=== PATIENT | female | born 1940 | race Caucasian/White ===

== ENCOUNTER 2016-07-10 10:22 | Inpatient (IN) | payer OTHER ==
[~2016-07-10] VITALS: Ht 167.6 cm; Wt 100.0 kg
[2016-07-10] MEDS ORDERED: TRAZ50TA18 PO (11:02)
[2016-07-10] MEDS ORDERED: IBUP400T22 PO (11:02)
[2016-07-10] MEDS ORDERED: AMLO-147 PO (11:02)
[2016-07-10] MEDS ORDERED: DULO60CA59 PO (11:03)
[2016-07-10] MEDS ORDERED: FURO20TA3 PO (11:03)
[2016-07-10] MEDS ORDERED: VALS160T20 PO (11:04)
[2016-07-10] MEDS ORDERED: FER325 PO (11:04)
[2016-07-10] MEDS ORDERED: OMEP20CA16 PO (11:05)
[2016-07-10] MEDS ORDERED: SODIUM CHLORIDE 0.9% 1L BAG IV* STA (11:13)
[2016-07-10] MEDS ORDERED: VANCOMYCIN 1 GM (PMX) 250 ML IVPB STA (11:13)
[2016-07-10] MEDS ORDERED: ACETAMINOPHEN 325 MG TAB PO STA (11:13)
[2016-07-10] MEDS ORDERED: LEVOFLOXACIN 500MG/D5W (PMX) 100 ML IVPB STA (11:17)
[2016-07-10] MEDS ORDERED: IPRATROPIUM (NEB) 0.5 MG/2.5 ML AMP INH STA (11:18)
[2016-07-10] MEDS ORDERED: ALBUTEROL 0.5% (NEB) 2.5 MG/0.5 ML AMP INH STA (11:18)
[2016-07-10] MEDS ORDERED: LABETALOL HCL 20MG INJ IV ONE (11:30)
[2016-07-10] MEDS ORDERED: IBUPROFEN 800 MG TAB PO ONE (11:30)
[2016-07-10 11:31] LABS: ADD SCAN DIFF NO
[2016-07-10 11:37] LABS: BASOPHILS % 0.1 % (0.0-2.0); HEMATOCRIT 31.6 % (37.0-47.0); HEMOGLOBIN 10.2 g/dl (12.0-16.0); LYMPHOCYTES # 1.1 10^3/ul (0.8-2.9); LYMPHOCYTES % 11.5 % (15.0-51.0); MEAN CORPUSCULAR HEMOGLOBIN 25.5 pg (29.0-33.0); MEAN CORPUSCULAR HGB CONC 32.3 g/dl (32.0-37.0); MEAN PLATELET VOLUME 10.5 fl (7.4-10.4); MONOCYTE # 0.5 10^3/ul (0.3-0.9); MONOCYTES % 5.8 % (0.0-11.0); NEUTROPHIL # 7.6 10^3/ul (1.6-7.5); NEUTROPHILS % 82.3 % (39.0-77.0); PLATELET COUNT 243 10^3/UL (140-415); RED CELL DISTRIBUTION WIDTH 14.4 % (11.5-14.5); WHITE BLOOD COUNT 9.2 10^3/ul (4.8-10.8)
[2016-07-10 11:42] LABS: ALBUMIN 3.9 g/dl (3.3-4.9); CHLORIDE 99 mmol/L (97-110); POTASSIUM 3.8 mmol/L (3.5-5.1); SODIUM 139 mmol/L (135-144)
[2016-07-10 11:44] LABS: AMYLASE 57 U/L (11-123); CREATININE 0.74 mg/dl (0.44-1.00)
[2016-07-10 11:45] LABS: ALANINE AMINOTRANSFERASE 30 IU/L (13-69); ALBUMIN/GLOBULIN RATIO 1.05; ALKALINE PHOSPHATASE 106 IU/L (42-121); ANION GAP 18 (8-16); ASPARTATE AMINO TRANSFERASE 24 IU/L (15-46); BILIRUBIN,INDIRECT 0.3 mg/dl (0-1.1); BILIRUBIN,TOTAL 0.3 mg/dl (0.2-1.3); BLOOD UREA NITROGEN 10 mg/dl (7-20); CALCIUM 8.8 mg/dl (8.4-10.2); CARBON DIOXIDE 26 mmol/L (21-31); GLUCOSE 193 mg/dl (70-220); TOTAL PROTEIN 7.6 g/dl (6.1-8.1)
[2016-07-10 11:47] LABS: INR 0.98
[2016-07-10 11:48] LABS: PARTIAL THROMBOPLASTIN TIME 28.1 Sec (25.0-35.0)
[2016-07-10 11:59] LABS: TROPONIN-I < 0.012 ng/ml (0.00-0.12)
--- NOTE | 2016-07-10 12:08 | RADRPT ---
PROCEDURE: XR Chest. CLINICAL INDICATION: Chest pain , sepsis TECHNIQUE: Single frontal view of the chest was obtained COMPARISON: None FINDINGS: The heart is enlarged. The thoracic aorta is calcified. There is a patchy right lower lobe infiltrate. There is no pleural effusion or pneumothorax. RPTAT: AA IMPRESSION: Patchy right lower lobe infiltrate. Mild cardiomegaly. Calcified aorta consistent with atherosclerotic disease. .Oscar López MD, MD Date Time Electronically viewed and signed by .Oscar López MD, on 07/10/2016 12:08 .S/
--- NOTE | 2016-07-10 12:18 | ERA ---
ER Documentation Chief Complaint Date/Time DATE: 07/10/16 TIME: 12:08 Chief Complaint feels sick,sob, flu like symptoms HPI This is a 75-year-old female that presents to the emergency complaining of difficulty breathing for the past 3 days. The patient has had a productive cough with whitish sputum. She had a tactile fever with shaking and chills that began roughly 12 hours prior to arrival. The patient had generalized myalgias. She denies any shortness of breath at rest or exertion contrary to the triage note. She denies a headache or changes in vision. 6 months prior to arrival in October the patient had an angiogram with clean coronaries and did not require cardiac stent. She did at that time had an episode of anemia and required 2 units of packed red blood cells. She has had no hemoptysis hematemesis or melanotic stools. She has had no recent hospitalizations. She lost her roughly 1 year ago and therefore moved from [facility] at that time to live with her daughters. ROS All systems reviewed and are negative except as per history of present illness. Medications Home Meds Reported Medications Omeprazole* (Omeprazole*) 20 Mg Capsule.dr, 20 MG PO DAILY, #30 CAP 07/10/16 Valsartan* (Diovan*) 160 Mg Tablet, 160 MG PO DAILY, TAB 07/10/16 Ferrous Sulfate* (Ferrous Sulfate*) 325 Mg Tabec, 325 MG PO BID, TAB 07/10/16 Furosemide* (Furosemide*) 20 Mg Tablet, 20 MG PO DAILY Y for PRN, #60 TAB 07/10/16 Duloxetine Hcl* (Duloxetine Hcl*) 60 Mg Capsule.dr, 60 MG PO DAILY, #30 CAP 07/10/16 Amlodipine Besylate* (Amlodipine Besylate*) 10 Mg Tablet, 10 MG PO DAILY, #30 TAB 07/10/16 Trazodone Hcl* (Trazodone Hcl*) 50 Mg Tablet, 50 MG PO QHS, #30 TAB 07/10/16 Ibuprofen* (Ibuprofen*) 400 Mg Tablet, 400 MG PO Q6H Y for PAIN, TAB 07/10/16 Discontinued Reported Medications Furosemide* (Furosemide*) 20 Mg Tablet, 20 MG PO DAILY, #60 TAB 07/10/16 Allergies Allergies: Coded Allergies: Penicillins (Verified Allergy, Severe, 07/10/16) PMhx/Soc Hx Psychiatric Problems: No Hx Miscellaneous Medical Probl: No Hx Alcohol Use: No Hx Substance Use: No Hx Tobacco Use: No Smoking Status: Never smoker Physical Exam Vitals Vital Signs Date Time Temp Pulse Resp B/P Pulse Ox O2 Delivery O2 Flow Rate FiO2 07/10/16 11:34 Nasal Cannula 3 07/10/16 10:32 102.9 121 24 171/79 96 Physical Exam Constitutional:Well-developed. Well-nourished. Mild respiratory distress peer HEENT:Normocephalic. Atraumatic.Pupils were equal round reactive to light. Dry mucous membranes.No tonsillar exudates. Neck: No nuchal rigidity. No lymphadenopathy. No posterior cervical spine tenderness or step-offs. Respiratory: Wheezing on end auscultation bilaterally. Not using accessory muscles of respiration. No stridor. No rhonchi. Cardiovascular: Tachycardic with regular rhythm.No murmurs. No rubs were appreciated.S1, S2 normal. Distal pulses are palpable 2+ bilaterally. GI: Abdomen was soft. Nontender. Non Distended. No pulsatile abdominal masses or bruits. No rebound. No guarding. Bowel sounds were present and normal. Muscle skeletal: Full range of motion of both the upper and lower extremities bilaterally.Normal muscle tone.No assymetrical calf tenderness or swelling. Skin: No petechia, no purpura. No lesions on the palms or the soles of the feet. No maculopapular rash. NEURO: Patient was alert, awake, orientated x3.No facial droop. Gait observed and normal with no ataxia.Speech had regular rate and rhythm. No focal neurological deficits. Result Diagram: 07/10/16 1110 07/10/16 1110 Results 24 hrs Laboratory Tests Test 07/10/16 11:10 Activated Partial Thromboplast Time 28.1Sec Alanine Aminotransferase (ALT/SGPT) 30IU/L Albumin 3.9g/dl Albumin/Globulin Ratio 1.05 Alkaline Phosphatase 106IU/L Amylase Level 57U/L Anion Gap 18 Aspartate Amino Transf (AST/SGOT) 24IU/L Basophils # 0.010^3/ul Basophils % 0.1% Blood Urea Nitrogen 10mg/dl Calcium Level 8.8mg/dl Carbon Dioxide Level 26mmol/L Chloride Level 99mmol/L Creatinine 0.74mg/dl Direct Bilirubin 0.00mg/dl Eosinophils # 0.010^3/ul Eosinophils % 0.0% Globulin 3.70g/dl Glucose Level 193mg/dl Hematocrit 31.6% Hemoglobin 10.2g/dl INR International Normalized Ratio 0.98 Indirect Bilirubin 0.3mg/dl Lactic Acid Level 3.7mmol/L Lipase 64U/L Lymphocytes # 1.110^3/ul Lymphocytes % 11.5% Mean Corpuscular Hemoglobin 25.5pg Mean Corpuscular Hemoglobin Concent 32.3g/dl Mean Corpuscular Volume 79.0fl Mean Platelet Volume 10.5fl Monocytes # 0.510^3/ul Monocytes % 5.8% Neutrophils # 7.610^3/ul Neutrophils % 82.3% Nucleated Red Blood Cells # 0.010^3/ul Nucleated Red Blood Cells % 0.0/100WBC Platelet Count 75696^3/UL Potassium Level 3.8mmol/L Prothrombin Time 13.0Sec Prothrombin Time Ratio 1.0 Red Blood Count 4.0010^6/ul Red Cell Distribution Width 14.4% Sodium Level 139mmol/L Total Bilirubin 0.3mg/dl Total Protein 7.6g/dl Troponin I < 0.012ng/ml White Blood Count 9.210^3/ul Current Medications Medications (Trade) Dose Ordered Sig/Cruz Route PRN Reason Start Time Stop Time Status Last Admin Dose Admin Sodium Chloride (NS) 3,100 ml BOLUS OVER 2 HOURS STAT IV* 07/10/16 11:13 07/10/16 11:17 DC 07/10/16 11:25 Acetaminophen 650 mg 650 mg ONCE STAT PO 07/10/16 11:13 07/10/16 11:17 DC 07/10/16 11:23 Vancomycin HCl (Vancocin) 250 ml @ 125 mls/hr ONCE STAT IVPB 07/10/16 11:13 07/10/16 13:12 Ibuprofen (Motrin) 800 mg ONCE ONCE PO 07/10/16 11:30 07/10/16 11:31 DC 07/10/16 11:23 Labetalol HCl 10 mg 10 mg ONCE ONCE IV 07/10/16 11:30 07/10/16 11:31 DC 07/10/16 11:26 Levofloxacin/ Dextrose (Levaquin 500mg/ D5W 100 ml (Pmx)) 100 ml @ 100 mls/hr ONCE STAT IVPB 07/10/16 11:17 07/10/16 12:16 DC 07/10/16 11:44 Albuterol (Proventil 0.5% (Neb)) 10 mg ONCE STAT INH 07/10/16 11:18 07/10/16 11:19 DC Ipratropium [place] (Atrovent 0.02% (Neb)) 1 mg ONCE STAT INH 07/10/16 11:18 07/10/16 11:19 DC Procedures/MDM The patient presented to the emergency department febrile, tachycardic, tachypneic and with a suspected respiratory infection. Therefore the patient was treated for sepsis. Patient's infectious symptoms have not stabilized and the patient is at risk of rapid decompensation. The patient will be admitted for careful hydration, antibiotic therapy, and infectious source control. Severe Sepsis Assessment: Infectious Source: Pneumonia End organ damage indicated by: Lactate > 2.0 mmol/L Acute Resp Failure (sat < 92% w/o oxygen) Severe Sepsis Managment: Blood Cultures X 2 before broad spectrum antibiotics initiated within 3 hours of recognition. 30 ml/kg NS bolus Completed Initial Lactate: 3.2 Repeat Lactate pending I considered further perfusion assessment with CVP measurement, SCVO2, bedside ultrasound volume assessment, passive leg raise, trial of further fluid bolus. And preceded with IV fluids 12 Lead EKG tracing ordered and reviewed by myself showed: Sinus tachycardia 112 bpm and no arrhythmia. Left axis deviation NC interval normal. QRS duration normal. No ST segment elevation No ST segment depression. Q waves present in the septal leads V2 V3 The patient did have a right lower lobe pneumonia that was seen on the chest radiograph. The patient had been given nebulizer treatments of albuterol Atrovent. The patient does not smoke tobacco. Patient has an allergy to penicillin and therefore was given vancomycin and Levaquin. This patient also presented to the emergency department with severely elevated blood pressure. My differential diagnosis included but was not limited to conditions that could end-organ damage such as acute coronary syndrome, acute pulmonary edema, aortic dissection, subarachnoid hemorrhage, intracerebral hemorrhage, cerebral infarction, withdrawal syndromes from beta blockers, or states of catecholamine excess such as pheochromocytoma or drug intoxication. Ancillary lab work was obtained. There was no elevation in the BUN and creatinine to suggest acute renal failure. Electrolytes were normal. Cardiac enzyme was normal and the 12 lead EKG showed no acute ischemic changes or left ventricular hypertrophy. Given that the patient had an absence of cerebral, ocular, cardiac or renal damage the hypertensive urgency was treated with IV labetolol in the emergency room with improvement of the patient's blood pressure. The patient will be admitted in serious condition the hospitalist with an anticipated stay of greater than 2 midnights. Departure Diagnosis: Primary Impression: Pneumonia Qualified Code: J18.9 - Pneumonia of right lower lobe due to infectious organism Additional Impression: Sepsis Qualified Code: A41.9 - Sepsis, due to unspecified organism Condition: Serious ROSECRYSTALA Jul 10, 2016 12:18
[2016-07-10] MEDS ORDERED: ONDANSETRON 4 MG INJ IV PRN ×2 (13:00→14:00)
[2016-07-10] MEDS ORDERED: ACETAMINOPHEN 325 MG TAB PO PRN ×2 (13:00→14:00)
[2016-07-10] MEDS ORDERED: DOCUSATE SODIUM 100 MG CAP PO PRN (14:00)
[2016-07-10] MEDS ORDERED: BISACODYL 10 MG SUPP PR PRN (14:00)
[2016-07-10] MEDS ORDERED: ACETAMINOPHEN 650 MG SUPP PR PRN (14:00)
[2016-07-10] MEDS ORDERED: NACL 0.9% 3 ML SYG IV SCH (14:00)
[2016-07-10] MEDS ORDERED: IBUPROFEN 400 MG TAB PO PRN (14:00)
[2016-07-10] MEDS ORDERED: HYDROCODONE/APAP (5/325) TAB PO PRN (14:00)
[2016-07-10] MEDS ORDERED: FUROSEMIDE 20 MG TAB PO PRN (14:00)
[2016-07-10] MEDS ORDERED: VANCOMYCIN IV PER PHARMACY XX SCH (14:00)
[2016-07-10] MEDS ORDERED: MAGNESIUM HYDROXIDE 30ML CUP PO PRN (14:00)
--- NOTE | 2016-07-10 16:14 | RADRPT ---
Echocardiogram Report Patient Name: FATEMEH ARAUJO Gender: Female Date: 1940 Study Date: 10-Jul-2016 Meat Grader: Evy Ybarra RDCS Location: ER Ref. Physician: MICHELA PARRA Quality: Technically Difficult Study Procedures: Transthoracic echocardiogram with complete 2D, M-Mode, and doppler examination. Indications: Congestive Heart Failure. 2D/M Mode Doppler Measurement Value Normal Ranges Measurement Value Normal Ranges LVIDd 2D 4.1 3.5 - 5.6 cm AV Peak Yinka 1.7 m/sec LVIDs 2D 2.4 2.1 - 4.1 cm AV Peak PG 12.0 mmHg FS 2D 40.8 % LVOT Peak Yinka 1.2 m/sec LVPWd 2D 1.1 0.6 - 1.1 cm LVOT Peak PG 6.0 mmHg IVSd 2D 1.1 0.6 - 1.1 cm MV E Peak Yinka 0.9 m/sec IVS/LVPW 2D 1.0 MV A Peak Yinka 1.3 m/sec AoR Diam 2D 2.6 2.0 - 3.7 cm MV E/A 0.7 LA/Ao 2D 1 0 - 1 MV Decel Time 113 msec EDV 2D 69.9 cm3 MV E/A 0.7 ESV 2D 14.5 cm3 LA Dimen 2D 3.5 2.3 - 4.0 cm Findings Left Ventricle: Normal left ventricular systolic function. Normal left ventricular cavity size. Normal left ventricular wall thickness. Ejection fraction is visually estimated at 65 %. Tissue Doppler/Mitral Doppler indices are consistent with impaired relaxation (Stage I diastolic dysfunction). Right Ventricle: Normal right ventricular size. Normal right ventricular systolic function. Left Atrium: The left atrium is normal in size. Right Atrium: The right atrium is normal in size. Mitral Valve: Mitral valve leaflets appear mildly thickened. Mild mitral annular calcification. Trace mitral regurgitation. Aortic Valve: Normal appearance of the aortic valve. No significant aortic stenosis or insufficiency. Tricuspid Valve: Normal appearance and function of the tricuspid valve with trace physiologic regurgitation. Pulmonic Valve: Normal pulmonic valve appearance. Pericardium: Normal pericardium with no significant pericardial effusion. Aorta: Normal aortic root. IVC: Normal size and no respiratory collapse consistent with elevated right atrial pressure. Conclusions 1.Normal left ventricular systolic function. Normal left ventricular cavity size. Normal left ventricular wall thickness. Ejection fraction is visually estimated at 65 %. Tissue Doppler/Mitral Doppler indices are consistent with impaired relaxation (Stage I diastolic dysfunction). 2.Normal right ventricular size. Normal right ventricular systolic function. 3.The left atrium is normal in size. 4.The right atrium is normal in size. 5.No significant valvular stenosis or regurgitation seen. 6.Normal pericardium with no significant pericardial effusion. Electronically Signed By: Janusz Evans 10-Jul-2016 16:14:14 -0800 Patient Name: FATEMEH ARAUJO Study Date: 10-Jul-[id number]
[2016-07-10 16:18] VITALS: TEMP 98.5
--- NOTE | 2016-07-10 16:38 | CONS ---
DATE OF ADMISSION: 07/10/2016 DATE OF CONSULTATION: 07/10/2016 TYPE OF CONSULTATION: Infectious disease. REASON FOR CONSULTATION: Antibiotic management. HISTORY OF PRESENT ILLNESS: Selene Saenz is a 75-year-old [place] female who presen ts with shortness of breath of 3 days' duration, accompanied by a productive cough and whitish sputu m. She had a tactile fever with shaking chills that began 12 hours prior to coming to the emergency room, associated with generalized malaise and myalgias. She is not short of breath. She was seen about 6 months ago and had anemia, requiring 2 units of packed red blood cells. She moved from [facility] 1 year ago after losing her and lives with her daughters. PAST PROBLEMS: Include: 1. Hypertension. 2. GERD. 3. ALLERGY TO PENICILLIN. PAST MEDICAL HISTORY: Operations, none. FAMILY HISTORY: Noncontributory. SOCIAL HISTORY: She does not smoke, drink or abuse drugs. ALLERGIES: PENICILLIN. NONE TO SULFA OR FOODS. MEDICATIONS: Per chart. REVIEW OF SYSTEMS: As per HPI. PHYSICAL EXAMINATION: GENERAL: The patient is a well-developed, well-nourished elderly female, who is awake, responsive, in no acute distress. VITAL SIGNS: T-max of 102.9, blood pressure is 171/79, respirations 24, pulse 120. SKIN: Without generalized rash. HEENT: Within normal limits. NECK: Supple. LYMPH NODES: None palpable. CHEST: Decreased breath sounds at the bases. HEART: Without murmur or gallop. She is tachycardic. ABDOMEN: Soft, nontender, without organosplenomegaly or masses. EXTREMITIES: Without cyanosis, clubbing, or edema. RECTAL AND GENITAL EXAM: Deferred. NEUROLOGIC: No focal neurological abnormalities. LABORATORY: Her white count is 9.2, H and H is 10.2 and 31.6, platelet count 243,000. BUN and crea tinine are 10/0.74. A chest x-ray shows patchy right lower lobe infiltrate, mild cardiomegaly, enla rged heart, and calcified aorta. Influenza A and B are negative. The patient was begun on Levaquin for community-acquired pneumonia. Will continue her on this regimen for the time being. I will dictate my findings to the [facility]. Dictated By: MIKE ENGEL MD, JD/MAKENZIE Conf#: [id number] [facility]#: [id number]
[2016-07-10 17:00] VITALS: Ht 167.6 cm; Wt 100.0 kg
--- NOTE | 2016-07-10 17:46 | HP ---
Date/Time of Note Date/Time of Note DATE: 07/10/16 TIME: 17:38 Assessment/Plan VTE Prophylaxis VTE Prophylaxis Intervention: SCD's Assessment/Plan Chief Complaint/Hosp Course Impression and plan 1. Sepsis secondary to right lower lung lobe pneumonia. Of note influenza A and B are negative. Continue on antibiotics. ID following. Monitor lactic acid. Cont IVF 2. Dyspnea likely secondary to #1. Continue bronchodilation O2 supplement. Titrate down as tolerated 3. Iron deficiency anemia. Follow up on an panel. Continue on iron supplement 4. History of depression. Continue on Cymbalta 5. History of CHF. Follow-up echocardiogram 6. Essential hypertension. Continue on antihypertensives and adjust as needed Admission Process time: 40 minutes Discussed plan of care with Dr. Blackwell Problems: HPI/ROS Admit Date/Time Admit Date/Time Hx of Present Illness This is a 75-year-old female with past medical history of CAD status post angiogram 6 months ago, right knee replacement, hypertension, arthritis, who came to [facility] due to reports of 3 days duration of increased shortness of breath with productive cough. Patient did report that she did not have any sick contacts. She stated that she had temperature as high as 102 the night prior to admission. She does have some associated chest pain with or cough. Patient also mentioned that she does have blood in her stool at times but also states that she has hemorrhoids. She did report that she had anemia previously 6 months ago requiring packed red blood cell transfusion 2. On further examination she was noted with a hemoglobin of 10.2 and hematocrit 31.6. Her lactic acid was 3.8 and she did have chest x-ray compatible with that of right lower lung lobe pneumonia. Patient also did have initial aperture of 102.9 and heart rate as high as 121. She was also noted to be hypertensive at 171/79. Currently the patient does report having some shortness of breath with cough. We will evaluate her for the aforementioned issues. ROS 12 point review of systems obtain an entirely negative except that mentioned in history of present illness PMH/Family/Social Past Medical History CAD status post angiogram 6 months ago, right knee replacement, hypertension, arthritis Family History Significant Family History: no pertinent family hx Social History Alcohol Use: none Smoking Status: Never smoker Drug Use: none Exam/Review of Systems Vital Signs Vitals Vital Signs Date Time Temp Pulse Resp B/P Pulse Ox O2 Delivery O2 Flow Rate FiO2 07/10/16 16:18 98.5 102 29 116/65 100 Nasal Cannula 3.5 Exam Exam General: in some distress due to shortness of breath Eyes: pupils equal round, Anicteric sclera Neck: Supple nontender, no JVD Cardiac: regular rate to tachycardic Pulmonary: rhonchi auscultated bilaterally. wheezing. noted bilaterally GI: obese, minimally tender on palpation Extremities: edema BLE Skin: Clean dry and intact Neurologic: Alert to person place and time and situation Labs Result Diagram: 07/10/16 1110 07/10/16 1110 Medications Medications Current Medications Amlodipine Besylate (Norvasc) 10 mg DAILY PO ; Start 07/11/16 at 09:00 Duloxetine HCl (Cymbalta) 60 mg DAILY PO ; Start 07/11/16 at 09:00 Ferrous Sulfate (Ferrous Sulfate (Ec)) 325 mg BID PO ; Start 07/10/16 at 21:00 Ibuprofen (Motrin) 400 mg Q6H PRN PO PAIN; Start 07/10/16 at 14:00 Trazodone HCl (Desyrel) 50 mg QHS PO ; Start 07/10/16 at 21:00 Valsartan (Diovan) 160 mg DAILY PO ; Start 07/11/16 at 09:00 Pantoprazole 40 mg 40 mg DAILY@06 PO ; Start 07/11/16 at 06:00 Sodium Chloride (NS) 1,000 ml @ 100 mls/hr Q10H IV ; Start 07/10/16 at 17:00 Ondansetron HCl (Zofran Inj) 4 mg Q6H PRN IV NAUSEA AND/OR VOMITING; Start 07/10 at 14:00 Acetaminophen (Tylenol Tab) 650 mg Q6H PRN PO PAIN LEVEL 1-3 OR FEVER; Start at 14:00 Acetaminophen (Tylenol Supp) 650 mg Q6H PRN TN PAIN LEVEL 1-3 OR FEVER; Start 07/10/16 at 14:00 Acetaminophen/ Hydrocodone Bitart ([place] (5/325)) 1 tab Q6H PRN PO MODERATE PAIN LEVEL 4-6; Start 07/10/16 at 14:00 Acetaminophen/ Hydrocodone Bitart ([place] (5/325)) 2 tab Q6H PRN PO SEVERE PAIN LEVEL 7-10; Start 07/10/16 at 14:00 Morphine Sulfate (morphine) 2 mg Q4H PRN IV SEVERE PAIN LEVEL 7-10; Start at 14:00 Docusate Sodium (Colace) 100 mg Q12H PRN PO CONSTIPATION; Start 07/10/16 at 14: 00 Magnesium Hydroxide (Milk Of Mag) 30 ml DAILY PRN PO CONSTIPATION; Start at 14:00 Bisacodyl 10 mg 10 mg DAILY PRN TN CONSTIPATION; Start 07/10/16 at 14:00 Levofloxacin/ Dextrose (Levaquin 500mg/ D5W 100 ml (Pmx)) 100 ml @ 100 mls/hr Q24H IVPB ; Start 07/11/16 at 12:00 Methylprednisolone Sodium Succinate (Solu-Medrol) 60 mg BID IV ; Start 07/10/16 at 21:00 Furosemide (Lasix) 40 mg DAILY IV ; Start 07/11/16 at 09:00 MICHELA PARRA Jul 10, 2016 17:46
[2016-07-10 18:01] VITALS: BP 144/64; RESP 16
[2016-07-10] MEDS: SOD CHLORIDE 0.9% 1,000 ML IV SCH (18:32)
[2016-07-10 20:00] VITALS: BP 143/63; PULSE 101; PULSE 103; PULSE 97; RESP 18
[2016-07-10] MEDS: METHYLPREDNISOLONE 125 MG INJ IV SCH (20:36)
[2016-07-10] MEDS: VANCOMYCIN 1 GM in NS 250 ML IVPB SCH (20:36)
[2016-07-10] MEDS: FERROUS SULFATE (EC) 325 MG TAB PO SCH (20:37)
[2016-07-10] MEDS: ALBUTEROL/IPRATROPIUM (NEB) 3 ML AMP HHN SCH (21:30)
[2016-07-10] MEDS: traZODone 50 MG TAB PO SCH (23:02)
[2016-07-11] VITALS (12 sets, daily range): BP systolic 119–201; BP diastolic 60–89; PULSE 60–114; RESP 16–21
[2016-07-11] MEDS: ALBUTEROL/IPRATROPIUM (NEB) 3 ML AMP HHN PRN (02:16)
[2016-07-11] MEDS: SOD CHLORIDE 0.9% 1,000 ML IV SCH ×2 (03:00→13:34)
[2016-07-11] MEDS: PANTOPRAZOLE (EC) 40 MG TAB PO SCH (06:02)
[2016-07-11] MEDS: FUROSEMIDE 40 MG INJ IV SCH (06:02)
[2016-07-11 07:14] LABS: ALBUMIN 3.6 g/dl (3.3-4.9)
[2016-07-11 07:15] LABS: POTASSIUM 3.9 mmol/L (3.5-5.1)
[2016-07-11 07:17] LABS: ALBUMIN/GLOBULIN RATIO 1.16; CREATININE 0.71 mg/dl (0.44-1.00); TOTAL PROTEIN 6.7 g/dl (6.1-8.1)
[2016-07-11 07:18] LABS: CHOL/HDL RATIO 4.8 RATIO; MAGNESIUM 1.7 mg/dl (1.7-2.5); PHOSPHORUS 2.6 mg/dl (2.5-4.9)
[2016-07-11 07:30] LABS: T3 UPTAKE 38.6 % (23.5-40.5)
[2016-07-11] MEDS: ALBUTEROL/IPRATROPIUM (NEB) 3 ML AMP HHN SCH ×4 (07:34→23:53)
[2016-07-11 07:44] LABS: THYROID STIMULATING HORMONE 1.25 MIU/L (0.465-4.680)
[2016-07-11] MEDS: VANCOMYCIN 1 GM in NS 250 ML IVPB SCH (08:28)
[2016-07-11] MEDS ORDERED: INFLUENZA VIRUS VACCINE 0.5 ML (DISPENSING) IM* ONE (09:00)
[2016-07-11] MEDS: FERROUS SULFATE (EC) 325 MG TAB PO SCH ×2 (10:06→21:23)
[2016-07-11] MEDS: DULOXETINE 30 MG CAP DR PO SCH (10:07)
[2016-07-11] MEDS: AMLODIPINE 10 MG TAB PO SCH (10:07)
[2016-07-11] MEDS: VALSARTAN 160 MG TAB PO SCH (10:08)
[2016-07-11] MEDS: METHYLPREDNISOLONE 125 MG INJ IV SCH ×2 (10:08→21:22)
--- NOTE | 2016-07-11 13:15 | PN ---
DATE: 07/11/2016 SUBJECTIVE: No events overnight. The patient is alert, lying comfortably in bed. She has some aud ible wheezing. She is in no distress. Denies pain. VITAL SIGNS: Temperature 98.9, pulse 97, respirations 18, blood pressure 146/60, saturation 97% on 3 liters. LABORATORY: No CBC this morning. BUN 13, creatinine 0.71. MICROBIOLOGY: Blood cultures negative. Influenza swab negative. ALLERGIES: PENICILLIN. ANTIMICROBIALS: The patient is on: 1. Levaquin. 2. Vancomycin. PHYSICAL EXAMINATION: GENERAL: This is a morbidly obese elderly [place] woman who is alert, in no distress. HEENT: Head atraumatic, normocephalic. Sclerae anicteric. Buccal mucosa dry. NECK: Supple, trachea midline. CHEST: Rise symmetrical. Breath sounds with expiratory wheezes, diminished at the bases. HEART: S1, S2. ABDOMEN: Soft, bowel tones present. EXTREMITIES: Without cyanosis. ASSESSMENT: 1. Systemic inflammatory response syndrome with fevers. 2. Community-acquired pneumonia. 3. Morbid obesity. 4. Hypertension. PLAN: The patient is on Levaquin and vancomycin. We are going to discontinue vancomycin, keep her on Levaquin and continue steroids, bronchodilators and follow chest x-ray in a.m. Await for clinica l improvement. Dictated By: JASSON TAYLOR LEAD ENGINEER for MIKE GUY/MAKENZIE Conf#: [id number] DID#: [id number]
[2016-07-11] MEDS: LEVOFLOXACIN 500MG/D5W (PMX) 100 ML IVPB SCH (13:32)
[2016-07-11] MEDS ORDERED: DEXTROSE 50% 50 ML SYRINGE IV PRN ×2 (14:30)
[2016-07-11] MEDS ORDERED: GLUCOSE GEL 15 GRAM TUBE PO PRN ×2 (14:30)
[2016-07-11] MEDS ORDERED: GLUCAGON 1 MG INJ IM PRN (14:30)
[2016-07-11] MEDS ORDERED: GLUCOSE GEL 15 GRAM TUBE BUCCAL PRN (14:30)
[2016-07-11] MEDS: morphine 2 MG INJ IV PRN (15:33)
--- NOTE | 2016-07-11 15:35 | PN ---
Date/Time of Note Date/Time of Note DATE: 07/11/16 TIME: 15:32 Assessment/Plan VTE Prophylaxis VTE Prophylaxis Intervention: SCD's Lines/Catheters IV [facility] Type [facility]from [facility] Saline Lock Urinary Cath still in place: No Assessment/Plan Chief Complaint/Hosp Course Impression and plan 1. Sepsis secondary to right lower lung lobe pneumonia. Of note influenza A and B are negative. Continue on antibiotics. ID following. Lactic acid downward turning. Continue to monitor 2. Dyspnea likely secondary to #1. Continue bronchodilation O2 supplement. Continue also on oxygen as needed. Patient provided with steroid 3. Iron deficiency anemia. Continue on iron supplement for now 4. History of depression. Continue on Cymbalta. Stable at present 5. History of CHF. Echocardiogram with ejection fraction at 65% with stage I diastolic dysfunction. Continue optimization with cardiovascular medications 6. Essential hypertension. Continue on antihypertensives and adjust as needed Disposition and plan: Still with cough and shortness of breath. Check follow-up x-ray. Await clinical improvement of respiratory status Discussed plan of care with Dr. Blackwell Problems: Subjective 24 Hr Interval Summary Free Text/Dictation Still with reported shortness of breath and cough Exam/Review of Systems Vital Signs Vitals Vital Signs Date Time Temp Pulse Resp B/P Pulse Ox O2 Delivery O2 Flow Rate FiO2 07/11/16 14:27 98 07/11/16 12:54 22 96 Nasal Cannula 3.0 07/11/16 11:48 98.9 146/63 Intake and Output 07/10/16 07/10/16 07/11/16 15:00 23:00 07:00 Intake Total 100 ml 300 ml Output Total 1000 ml Balance 100 ml -700 ml Exam General: Still noted with shortness of breath and cough Eyes: pupils equal round, Anicteric sclera Neck: Supple nontender, no JVD Cardiac: Tachycardic at times. Regular rate Pulmonary: Still with wheezing and congestion in lungs GI: Obese but nontender and abdomen at this time Extremities: Minimal edema bilateral lower extremities Skin: Clean dry and intact Neurologic: Alert to person place and time and situation Results Result Diagram: 07/10/16 1110 07/11/16 0640 Results 24 hrs Laboratory Tests Test 07/10/16 19:55 07/10/16 22:00 07/11/16 06:20 07/11/16 06:40 Lactic Acid Level 1.7 2.2 Hemoglobin A1c 7.3 H Alanine Aminotransferase (ALT/SGPT) 32 Albumin 3.6 Albumin/Globulin Ratio 1.16 Alkaline Phosphatase 100 Anion Gap 18 H Aspartate Amino Transf (AST/SGOT) 22 Blood Urea Nitrogen 13 Calcium Level 8.0 L Carbon Dioxide Level 24 Chloride Level 104 Cholesterol Level 215 H Cholesterol/HDL Ratio 4.8 Creatinine 0.71 Direct Bilirubin 0.00 Free Thyroxine Index 2.62 Globulin 3.10 Glucose Level 310 H HDL Cholesterol 44 Indirect Bilirubin 0.0 LDL Cholesterol, Calculated 148 Magnesium Level 1.7 Phosphorus Level 2.6 Potassium Level 3.9 Sodium Level 142 Thyroid Stimulating Hormone (TSH) 1.250 Thyroxine (T4) 6.8 Total Bilirubin 0.0 L Total Protein 6.7 Triglycerides Level 113 Triiodothyronine (T3) Uptake 38.6 Medications Medications Current Medications Amlodipine Besylate (Norvasc) 10 mg DAILY PO Last administered on 07/11/16 10: 07; Admin Dose 10 MG; Start 07/11/16 at 09:00 Duloxetine HCl (Cymbalta) 60 mg DAILY PO Last administered on 07/11/16 10:07; Admin Dose 60 MG; Start 07/11/16 at 09:00 Ferrous Sulfate (Ferrous Sulfate (Ec)) 325 mg BID PO Last administered on 10:06; Admin Dose 325 MG; Start 07/10/16 at 21:00 Ibuprofen (Motrin) 400 mg Q6H PRN PO PAIN; Start 07/10/16 at 14:00 Trazodone HCl (Desyrel) 50 mg QHS PO Last administered on 07/10/16 23:02; Admin Dose 50 MG; Start 07/10/16 at 21:00 Valsartan (Diovan) 160 mg DAILY PO Last administered on 07/11/16 10:08; Admin Dose 160 MG; Start 07/11/16 at 09:00 Pantoprazole 40 mg 40 mg DAILY@06 PO Last administered on 07/11/16 06:02; Admin Dose 40 MG; Start 07/11/16 at 06:00 Sodium Chloride (NS) 1,000 ml @ 100 mls/hr Q10H IV Last administered on 13:34; Admin Dose 100 MLS/HR; Start 07/10/16 at 17:00 Ondansetron HCl (Zofran Inj) 4 mg Q6H PRN IV NAUSEA AND/OR VOMITING; Start 07/10 at 14:00 Acetaminophen (Tylenol Tab) 650 mg Q6H PRN PO PAIN LEVEL 1-3 OR FEVER; Start at 14:00 Acetaminophen (Tylenol Supp) 650 mg Q6H PRN [place] PAIN LEVEL 1-3 OR FEVER; Start 07/10/16 at 14:00 Acetaminophen/ Hydrocodone Bitart ([place] (5/325)) 1 tab Q6H PRN PO MODERATE PAIN LEVEL 4-6; Start 07/10/16 at 14:00 Acetaminophen/ Hydrocodone Bitart ([place] (5/325)) 2 tab Q6H PRN PO SEVERE PAIN LEVEL 7-10; Start 07/10/16 at 14:00 Morphine Sulfate (morphine) 2 mg Q4H PRN IV SEVERE PAIN LEVEL 7-10; Start at 14:00 Docusate Sodium (Colace) 100 mg Q12H PRN PO CONSTIPATION; Start 07/10/16 at 14: 00 Magnesium Hydroxide (Milk Of Mag) 30 ml DAILY PRN PO CONSTIPATION; Start at 14:00 Bisacodyl 10 mg 10 mg DAILY PRN [place] CONSTIPATION; Start 07/10/16 at 14:00 Levofloxacin/ Dextrose (Levaquin 500mg/ D5W 100 ml (Pmx)) 100 ml @ 100 mls/hr Q24H IVPB Last administered on 07/11/16 13:32; Admin Dose 100 MLS/HR; Start 07/11/16 at 12:00 Methylprednisolone Sodium Succinate (Solu-Medrol) 60 mg BID IV Last administered on 07/11/16 10:08; Admin Dose 60 MG; Start 07/10/16 at 21:00 Furosemide (Lasix) 40 mg DAILY@06 IV Last administered on 07/11/16 06:02; Admin Dose 40 MG; Start 07/11/16 at 06:00 Insulin Glargine (Lantus) 12 unit DAILY@08 SC ; Start 07/12/16 at 08:00 Diagnostic Test (Pha) (Accucheck) 1 ea 02 XX ; Start 07/12/16 at 02:00 Miscellaneous Information 1 ea NOTE XX ; Start 07/11/16 at 14:30 Glucose (Glutose) 15 gm Q15M PRN PO DECREASED GLUCOSE; Start 07/11/16 at 14:30 Glucose (Glutose) 22.5 gm Q15M PRN PO DECREASED GLUCOSE; Start 07/11/16 at 14:30 Dextrose (D50w Syringe) 25 ml Q15M PRN IV DECREASED GLUCOSE; Start 07/11/16 at 14:30 Dextrose (D50w Syringe) 50 ml Q15M PRN IV DECREASED GLUCOSE; Start 07/11/16 at 14:30 Glucagon (Glucagen) 1 mg Q15M PRN IM DECREASED GLUCOSE; Start 07/11/16 at 14:30 Glucose (Glutose) 15 gm Q15M PRN BUCCAL DECREASED GLUCOSE; Start 07/11/16 at 14: 30 MICHELA PARRA Jul 11, 2016 15:35
[2016-07-11 17:01] LABS: CREATINE KINASE 164 IU/L (23-200)
[2016-07-11 17:10] LABS: CK-MB 1.86 ng/ml (0.0-2.4)
[2016-07-11 17:21] LABS: TROPONIN-I < 0.012 ng/ml (0.00-0.12)
[2016-07-11] MEDS: INSULIN ASPART [NOVOLOG] 3 ML PEN SC SCH ×3 (17:59→21:25)
[2016-07-11] MEDS ORDERED: FUROSEMIDE 20 MG INJ IV ONE (18:30)
[2016-07-11] MEDS: traZODone 50 MG TAB PO SCH (21:23)
[2016-07-11] MEDS: HEPARIN 5,000 UNIT/0.5 ML SYG SC SCH (21:25)
[2016-07-11 22:50] LABS: CK-MB 3.06 ng/ml (0.0-2.4)
[2016-07-11 22:53] LABS: TROPONIN-I 0.036 ng/ml (0.00-0.12)
--- NOTE | 2016-07-11 23:24 | RADRPT ---
PROCEDURE: XR Chest. CLINICAL INDICATION: Severe shortness of breath. TECHNIQUE: Portable AP semi erect view of the chest was obtained. COMPARISON: 07/10/2016 FINDINGS: The cardiomediastinal silhouette is mildly enlarged. Medial right lower lobe and right middle lobe infiltrate again noted, not significantly changed allowing for technical differences. The left lung is clear. There is no evidence for pleural effusion, pneumothorax or pulmonary vascular congestion . The osseous structures are intact with no evidence for acute abnormality. Calcification of the ao rta is again seen. Multiple monitoring wires overlie the chest limiting fine evaluation. RPTAT:HJJR IMPRESSION: 1. Medial right lower lobe and possible right middle lobe infiltrate unchanged compared to 07/11/19 17. 2. Mild cardiac silhouette enlargement without congestive heart failure pattern. Physician Maggy Date Time Electronically viewed and signed by Physician Maggy on 07/11/2016 23:24 /
[2016-07-12] VITALS (12 sets, daily range): BP systolic 108–175; BP diastolic 56–86; PULSE 88–100; RESP 16–22
[2016-07-12] MEDS: morphine 2 MG INJ IV PRN (00:35)
[2016-07-12] MEDS: ACCUCHECK XX SCH (02:39)
[2016-07-12] MEDS: PANTOPRAZOLE (EC) 40 MG TAB PO SCH (06:08)
[2016-07-12] MEDS: FUROSEMIDE 40 MG INJ IV SCH (06:09)
[2016-07-12] MEDS: ALBUTEROL/IPRATROPIUM (NEB) 3 ML AMP HHN PRN (07:19)
[2016-07-12 07:49] LABS: ADD SCAN DIFF NO
[2016-07-12] MEDS ORDERED: INSULIN GLARGINE [LANtus] 3 ML PEN SC SCH (08:00)
[2016-07-12 08:01] LABS: HEMATOCRIT 29.9 % (37.0-47.0); HEMOGLOBIN 9.5 g/dl (12.0-16.0); LYMPHOCYTES # 1.4 10^3/ul (0.8-2.9); LYMPHOCYTES % 15.7 % (15.0-51.0); MEAN CORPUSCULAR HEMOGLOBIN 25.2 pg (29.0-33.0); MEAN CORPUSCULAR HGB CONC 31.8 g/dl (32.0-37.0); MEAN CORPUSCULAR VOLUME 79.3 fl (82.0-101.0); MEAN PLATELET VOLUME 10.2 fl (7.4-10.4); MONOCYTE # 0.2 10^3/ul (0.3-0.9); MONOCYTES % 2.6 % (0.0-11.0); NEUTROPHIL # 7.2 10^3/ul (1.6-7.5); NEUTROPHILS % 80.5 % (39.0-77.0); PLATELET COUNT 297 10^3/UL (140-415); RED BLOOD COUNT 3.77 10^6/ul (4.20-5.40); RED CELL DISTRIBUTION WIDTH 14.8 % (11.5-14.5); WHITE BLOOD COUNT 8.9 10^3/ul (4.8-10.8)
[2016-07-12 08:18] LABS: POTASSIUM 3.4 mmol/L (3.5-5.1)
[2016-07-12 08:21] LABS: CREATININE 0.72 mg/dl (0.44-1.00)
[2016-07-12 08:22] LABS: CALCIUM 8.7 mg/dl (8.4-10.2)
[2016-07-12] MEDS: AMLODIPINE 10 MG TAB PO SCH (08:47)
[2016-07-12] MEDS: VALSARTAN 160 MG TAB PO SCH (08:47)
[2016-07-12] MEDS: DULOXETINE 30 MG CAP DR PO SCH (08:48)
[2016-07-12] MEDS: FERROUS SULFATE (EC) 325 MG TAB PO SCH ×2 (08:48→20:56)
[2016-07-12] MEDS: METHYLPREDNISOLONE 125 MG INJ IV SCH (08:49)
[2016-07-12] MEDS: INSULIN ASPART [NOVOLOG] 3 ML PEN SC SCH ×7 (08:49→20:58)
[2016-07-12] MEDS: HEPARIN 5,000 UNIT/0.5 ML SYG SC SCH ×2 (08:50→20:57)
[2016-07-12] MEDS ORDERED: METHYLPREDNISOLONE 125 MG INJ IV SCH (09:00)
[2016-07-12] MEDS ORDERED: INSULIN GLARGINE [LANtus] 3 ML PEN SC ONE (09:00)
[2016-07-12] MEDS ORDERED: METHYLPREDNISOLONE 40 MG INJ IV SCH (09:03)
--- NOTE | 2016-07-12 10:56 | PN ---
Date/Time of Note Date/Time of Note DATE: 07/12/16 TIME: 10:53 Assessment/Plan VTE Prophylaxis VTE Prophylaxis Intervention: heparin Lines/Catheters IV [facility] Type (from [facility] Saline Lock Urinary Cath still in place: No Assessment/Plan Chief Complaint/Hosp Course Impression and plan 1. Sepsis secondary to right lower lung lobe pneumonia. Of note influenza A and B are negative. Continue on antibiotics. ID following. Appears to be improving. Will monitor 2. Dyspnea likely secondary to #1. Continue bronchodilation O2 supplement. Continue also on oxygen as needed. We will try to titrate down. Still noted with active bronchospasm. Call Center Manager to follow 3. Iron deficiency anemia. Continue on iron supplement for now 4. History of depression. Continue on Cymbalta. Stable at present 5. History of CHF. Echocardiogram with ejection fraction at 65% with stage I diastolic dysfunction. Continue optimization with cardiovascular medications. Will adjust Lasix 6. Essential hypertension. Continue on antihypertensives and adjust as needed Disposition and plan: Chest x-ray still with noted right lower lobe lung pneumonia. Not much change. With clinical improvement. Basic suggested. 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 Blackwell Problems: Subjective 24 Hr Interval Summary Free Text/Dictation Patient still with reported cough and shortness of breath. Still seen on O2 3 L nasal cannula Exam/Review of Systems Vital Signs Vitals Vital Signs Date Time Temp Pulse Resp B/P Pulse Ox O2 Delivery O2 Flow Rate FiO2 07/12/16 08:14 88 07/12/16 08:00 Nasal Cannula 3.0 07/12/16 08:00 98.2 22 146/83 94 Intake and Output 07/11/16 07/11/16 07/12/16 14:59 22:59 06:59 Intake Total 1200 ml 1750 ml Balance 1200 ml 1750 ml Exam General: Still reports having some cough but less noted distress Eyes: pupils equal round, Anicteric sclera Neck: No JVD noted Cardiac: Still noted with some regular heart rate as well as tachycardia Pulmonary: Moderate wheezing and congestion noted GI: Obese but nontender and abdomen at this time Extremities: Minimal edema bilateral lower extremities still Skin: Clean dry and intact Neurologic: Alert to person place and time and situation Results Result Diagram: 07/12/16 0738 07/12/16 0738 Results 24 hrs Laboratory Tests Test 07/11/16 15:50 07/11/16 17:41 07/11/16 20:34 07/11/16 21:55 Creatine Kinase 164 204 H Creatine Kinase Index 1.1 1.5 Creatinine Kinase MB (Mass) 1.86 3.06 H Troponin I < 0.012 0.036 Bedside Glucose 339 H 275 H Test 07/12/16 02:31 07/12/16 07:38 Bedside Glucose 306 H 303 H Anion Gap 17 H Basophils # 0.0 Basophils % 0.0 Blood Urea Nitrogen 18 Calcium Level 8.7 Carbon Dioxide Level 26 Chloride Level 102 Creatinine 0.72 Eosinophils # 0.0 Eosinophils % 0.0 Glucose Level 323 H Hematocrit 29.9 L Hemoglobin 9.5 L Lymphocytes # 1.4 Lymphocytes % 15.7 Mean Corpuscular Hemoglobin 25.2 L Mean Corpuscular Hemoglobin Concent 31.8 L Mean Corpuscular Volume 79.3 L Mean Platelet Volume 10.2 Monocytes # 0.2 L Monocytes % 2.6 Neutrophils # 7.2 Neutrophils % 80.5 H Nucleated Red Blood Cells # 0.0 Nucleated Red Blood Cells % 0.0 Platelet Count 297 # Potassium Level 3.4 L Red Blood Count 3.77 L Red Cell Distribution Width 14.8 H Sodium Level 142 White Blood Count 8.9 Medications Medications Current Medications Amlodipine Besylate (Norvasc) 10 mg DAILY PO Last administered on 07/12/16 08: 47; Admin Dose 10 MG; Start 07/11/16 at 09:00 Duloxetine HCl (Cymbalta) 60 mg DAILY PO Last administered on 07/12/16 08:48; Admin Dose 60 MG; Start 07/11/16 at 09:00 Ferrous Sulfate (Ferrous Sulfate (Ec)) 325 mg BID PO Last administered on 08:48; Admin Dose 325 MG; Start 07/10/16 at 21:00 Ibuprofen (Motrin) 400 mg Q6H PRN PO PAIN; Start 07/10/16 at 14:00 Trazodone HCl (Desyrel) 50 mg QHS PO Last administered on 07/11/16 21:23; Admin Dose 50 MG; Start 07/10/16 at 21:00 Valsartan (Diovan) 160 mg DAILY PO Last administered on 07/12/16 08:47; Admin Dose 160 MG; Start 07/11/16 at 09:00 Pantoprazole 40 mg 40 mg DAILY@06 PO Last administered on 07/12/16 06:08; Admin Dose 40 MG; Start 07/11/16 at 06:00 Sodium Chloride (NS) 1,000 ml @ 100 mls/hr Q10H IV Last administered on 13:34; Admin Dose 100 MLS/HR; Start 07/10/16 at 17:00; Status Future Hold Ondansetron HCl (Zofran Inj) 4 mg Q6H PRN IV NAUSEA AND/OR VOMITING; Start 07/10 at 14:00 Acetaminophen (Tylenol Tab) 650 mg Q6H PRN PO PAIN LEVEL 1-3 OR FEVER; Start at 14:00 Acetaminophen (Tylenol Supp) 650 mg Q6H PRN [place] PAIN LEVEL 1-3 OR FEVER; Start 07/10/16 at 14:00 Acetaminophen/ Hydrocodone Bitart ([place] (5/325)) 1 tab Q6H PRN PO MODERATE PAIN LEVEL 4-6; Start 07/10/16 at 14:00 Acetaminophen/ Hydrocodone Bitart ([place] (5/325)) 2 tab Q6H PRN PO SEVERE PAIN LEVEL 7-10 Last administered on 07/11/16 15:29; Admin Dose 2 TAB; Start 07/10/16 at 14:00 Morphine Sulfate (morphine) 2 mg Q4H PRN IV SEVERE PAIN LEVEL 7-10 Last administered on 07/12/16 00:35; Admin Dose 2 MG; Start 07/10/16 at 14:00 Docusate Sodium (Colace) 100 mg Q12H PRN PO CONSTIPATION; Start 07/10/16 at 14: 00 Magnesium Hydroxide (Milk Of Mag) 30 ml DAILY PRN PO CONSTIPATION; Start at 14:00 Bisacodyl 10 mg 10 mg DAILY PRN [place] CONSTIPATION; Start 07/10/16 at 14:00 Levofloxacin/ Dextrose (Levaquin 500mg/ D5W 100 ml (Pmx)) 100 ml @ 100 mls/hr Q24H IVPB Last administered on 07/11/16 13:32; Admin Dose 100 MLS/HR; Start 07/11/16 at 12:00 Furosemide (Lasix) 40 mg DAILY@06 IV Last administered on 07/12/16 06:09; Admin Dose 40 MG; Start 07/11/16 at 06:00 Diagnostic Test (Pha) (Accucheck) 1 ea 02 XX Last administered on 07/12/16 02: 39; Admin Dose 1 EA; Start 07/12/16 at 02:00 Miscellaneous Information 1 ea NOTE XX ; Start 07/11/16 at 14:30 Glucose (Glutose) 15 gm Q15M PRN PO DECREASED GLUCOSE; Start 07/11/16 at 14:30 Glucose (Glutose) 22.5 gm Q15M PRN PO DECREASED GLUCOSE; Start 07/11/16 at 14:30 Dextrose (D50w Syringe) 25 ml Q15M PRN IV DECREASED GLUCOSE; Start 07/11/16 at 14:30 Dextrose (D50w Syringe) 50 ml Q15M PRN IV DECREASED GLUCOSE; Start 07/11/16 at 14:30 Glucagon (Glucagen) 1 mg Q15M PRN IM DECREASED GLUCOSE; Start 07/11/16 at 14:30 Glucose (Glutose) 15 gm Q15M PRN BUCCAL DECREASED GLUCOSE; Start 07/11/16 at 14: 30 Heparin Sodium (Porcine) (Heparin (5000 Units/0.5 ml)) 5,000 unit BID SC Last administered on 07/12/16 08:50; Admin Dose 5,000 UNIT; Start 07/11/16 at 21:00 Insulin Glargine (Lantus) 18 unit DAILY@08 SC ; Start 07/13/16 at 08:00 Methylprednisolone Sodium Succinate (Solu-Medrol) 40 mg BID IV ; Start 07/12/16 at 09:03 MICHELA PARRA Jul 12, 2016 10:56
[2016-07-12] MEDS: LEVOFLOXACIN 500MG/D5W (PMX) 100 ML IVPB SCH (12:20)
--- NOTE | 2016-07-12 13:43 | CONS ---
Date/Time of Note Date/Time of Note DATE: 07/12/16 TIME: 13:41 Assessment/Plan Assessment/Plan Chief Complaint/Hosp Course SUBJECTIVE: No events overnight. The patient is alert, comfortable on nc, no fevers. MICROBIOLOGY: Blood cultures negative. Influenza swab negative. ALLERGIES: PENICILLIN. ANTIMICROBIALS: Levaquin. PHYSICAL EXAMINATION: GENERAL: This is a morbidly obese elderly [place] woman who is alert, in no distress. HEENT: Head atraumatic, normocephalic. Sclerae anicteric. Buccal mucosa dry. NECK: Supple, trachea midline. CHEST: Rise symmetrical. Breath sounds with B expiratory wheezes, diminished at the bases. HEART: S1, S2. ABDOMEN: Soft, bowel tones present. EXTREMITIES: Without cyanosis. ASSESSMENT: 1. Systemic inflammatory response syndrome 2. Community-acquired pneumonia. 3. Morbid obesity. 4. Hypertension. PLAN: Remains stable. Continue abx, steroids, bronchodilators. Await for clinical improvement. DW staff DW daughter at bedside Problems: Consultation Date/Type/Reason Admit Date/Time Jul 10, 2016 at 12:34 Initial Consult Date Type of Consultation: ID Exam/Review of Systems Vital Signs Vitals Vital Signs Date Time Temp Pulse Resp B/P Pulse Ox O2 Delivery O2 Flow Rate FiO2 07/12/16 12:10 94 07/12/16 12:00 98.1 20 130/61 97 Nasal Cannula 3.0 Intake and Output 07/11/16 07/11/16 07/12/16 15:00 23:00 07:00 Intake Total 1200 ml 1750 ml Balance 1200 ml 1750 ml Results Result Diagram: 07/12/16 0738 07/12/16 0738 Results 24 hrs Laboratory Tests Test 07/11/16 15:50 07/11/16 17:41 07/11/16 20:34 07/11/16 21:55 Creatine Kinase 164 204 H Creatine Kinase Index 1.1 1.5 Creatinine Kinase MB (Mass) 1.86 3.06 H Troponin I < 0.012 0.036 Bedside Glucose 339 H 275 H Test 07/12/16 02:31 07/12/16 07:38 07/12/16 11:52 Bedside Glucose 306 H 303 H 264 H Anion Gap 17 H B-Type Natriuretic Peptide 2130 H Basophils # 0.0 Basophils % 0.0 Blood Urea Nitrogen 18 Calcium Level 8.7 Carbon Dioxide Level 26 Chloride Level 102 Creatinine 0.72 Eosinophils # 0.0 Eosinophils % 0.0 Glucose Level 323 H Hematocrit 29.9 L Hemoglobin 9.5 L Lymphocytes # 1.4 Lymphocytes % 15.7 Mean Corpuscular Hemoglobin 25.2 L Mean Corpuscular Hemoglobin Concent 31.8 L Mean Corpuscular Volume 79.3 L Mean Platelet Volume 10.2 Monocytes # 0.2 L Monocytes % 2.6 Neutrophils # 7.2 Neutrophils % 80.5 H Nucleated Red Blood Cells # 0.0 Nucleated Red Blood Cells % 0.0 Platelet Count 297 # Potassium Level 3.4 L Red Blood Count 3.77 L Red Cell Distribution Width 14.8 H Sodium Level 142 White Blood Count 8.9 Medications Medications Current Medications Amlodipine Besylate (Norvasc) 10 mg DAILY PO Last administered on 07/12/16 08: 47; Admin Dose 10 MG; Start 07/11/16 at 09:00 Duloxetine HCl (Cymbalta) 60 mg DAILY PO Last administered on 07/12/16 08:48; Admin Dose 60 MG; Start 07/11/16 at 09:00 Ferrous Sulfate (Ferrous Sulfate (Ec)) 325 mg BID PO Last administered on 08:48; Admin Dose 325 MG; Start 07/10/16 at 21:00 Ibuprofen (Motrin) 400 mg Q6H PRN PO PAIN; Start 07/10/16 at 14:00 Trazodone HCl (Desyrel) 50 mg QHS PO Last administered on 07/11/16 21:23; Admin Dose 50 MG; Start 07/10/16 at 21:00 Valsartan (Diovan) 160 mg DAILY PO Last administered on 07/12/16 08:47; Admin Dose 160 MG; Start 07/11/16 at 09:00 Pantoprazole 40 mg 40 mg DAILY@06 PO Last administered on 07/12/16 06:08; Admin Dose 40 MG; Start 07/11/16 at 06:00 Sodium Chloride (NS) 1,000 ml @ 100 mls/hr Q10H IV Last administered on 13:34; Admin Dose 100 MLS/HR; Start 07/10/16 at 17:00; Status Future Hold Ondansetron HCl (Zofran Inj) 4 mg Q6H PRN IV NAUSEA AND/OR VOMITING; Start 07/10 at 14:00 Acetaminophen (Tylenol Tab) 650 mg Q6H PRN PO PAIN LEVEL 1-3 OR FEVER; Start at 14:00 Acetaminophen (Tylenol Supp) 650 mg Q6H PRN [place] PAIN LEVEL 1-3 OR FEVER; Start 07/10/16 at 14:00 Acetaminophen/ Hydrocodone Bitart ([place] (5/325)) 1 tab Q6H PRN PO MODERATE PAIN LEVEL 4-6; Start 07/10/16 at 14:00 Acetaminophen/ Hydrocodone Bitart ([place] (5/325)) 2 tab Q6H PRN PO SEVERE PAIN LEVEL 7-10 Last administered on 07/11/16 15:29; Admin Dose 2 TAB; Start 07/10/16 at 14:00 Morphine Sulfate (morphine) 2 mg Q4H PRN IV SEVERE PAIN LEVEL 7-10 Last administered on 07/12/16 00:35; Admin Dose 2 MG; Start 07/10/16 at 14:00 Docusate Sodium (Colace) 100 mg Q12H PRN PO CONSTIPATION; Start 07/10/16 at 14: 00 Magnesium Hydroxide (Milk Of Mag) 30 ml DAILY PRN PO CONSTIPATION; Start at 14:00 Bisacodyl 10 mg 10 mg DAILY PRN [place] CONSTIPATION; Start 07/10/16 at 14:00 Levofloxacin/ Dextrose (Levaquin 500mg/ D5W 100 ml (Pmx)) 100 ml @ 100 mls/hr Q24H IVPB Last administered on 07/12/16 12:20; Admin Dose 100 MLS/HR; Start 07/11/16 at 12:00 Furosemide (Lasix) 40 mg DAILY@06 IV Last administered on 07/12/16 06:09; Admin Dose 40 MG; Start 07/11/16 at 06:00 Diagnostic Test (Pha) (Accucheck) 1 ea 02 XX Last administered on 07/12/16 02: 39; Admin Dose 1 EA; Start 07/12/16 at 02:00 Miscellaneous Information 1 ea NOTE XX ; Start 07/11/16 at 14:30 Glucose (Glutose) 15 gm Q15M PRN PO DECREASED GLUCOSE; Start 07/11/16 at 14:30 Glucose (Glutose) 22.5 gm Q15M PRN PO DECREASED GLUCOSE; Start 07/11/16 at 14:30 Dextrose (D50w Syringe) 25 ml Q15M PRN IV DECREASED GLUCOSE; Start 07/11/16 at 14:30 Dextrose (D50w Syringe) 50 ml Q15M PRN IV DECREASED GLUCOSE; Start 07/11/16 at 14:30 Glucagon (Glucagen) 1 mg Q15M PRN IM DECREASED GLUCOSE; Start 07/11/16 at 14:30 Glucose (Glutose) 15 gm Q15M PRN BUCCAL DECREASED GLUCOSE; Start 07/11/16 at 14: 30 Heparin Sodium (Porcine) (Heparin (5000 Units/0.5 ml)) 5,000 unit BID SC Last administered on 07/12/16t 08:50; Admin Dose 5,000 UNIT; Start 07/11/16 at 21:00 Insulin Glargine (Lantus) 18 unit DAILY@08 SC ; Start 07/13/16 at 08:00 Methylprednisolone Sodium Succinate (Solu-Medrol) 40 mg BID IV ; Start 07/12/16 at 09:03 JASSON TAYLOR NP Jul 12, 2016 13:43
[2016-07-12] MEDS: ALBUTEROL/IPRATROPIUM (NEB) 3 ML AMP HHN SCH ×2 (14:09→19:32)
--- NOTE | 2016-07-12 15:12 | RADRPT ---
PROCEDURE: XR Chest. CLINICAL INDICATION: Shortness of breath. Sepsis. TECHNIQUE: Single frontal view. COMPARISON: 07/11/2016. FINDINGS: There is air space disease at the right lung base medially, unchanged. The lungs are otherwise bethany r. The heart is enlarged. There is calcification in the aorta consistent with atherosclerosis. There is no pleural effusion. There is no pneumothorax. IMPRESSION: 1. Right medial lung base pneumonia. 2. Cardiomegaly and atherosclerosis. RPTAT: QQ .Ashwin Alexander MD, MD Date Time Electronically viewed and signed by .Ashwin Alexander MD, MD on 07/12/2016 15:12 .R/
--- NOTE | 2016-07-12 18:25 | CONS ---
DATE OF ADMISSION: 07/10/2016 DATE OF CONSULTATION: 07/12/2016 TYPE OF CONSULTATION: Pulmonary PRIMARY PHYSICIAN: Faizan Parra NP REASON FOR CONSULTATION: Respiratory insufficiency. HISTORY OF PRESENT ILLNESS: Briefly, this is a 75-year-old [place] female with a history of hypert ension, coronary artery disease, arthritis, who presents with increasing shortness of breath and vasyl e fevers. On admission, it was noted that she had potentially a very subtle right lower lung field opacity and has been treated for pneumonia. She remains somewhat short of breath with some dry nonp roductive cough. Denies any sick contacts. Denies any TB history. Her viral swabs for influenza h ave been negative. PAST MEDICAL HISTORY: As noted above. PAST SURGICAL HISTORY: History of knee replacement on the right side. ALLERGIES: NONE. FAMILY HISTORY: Noncontributory. SOCIAL HISTORY: No tobacco, alcohol or illicit drug use. REVIEW OF SYSTEMS: As noted in the HPI. PHYSICAL EXAMINATION: GENERAL: An obese female in no acute distress. VITAL SIGNS: Temperature is 98.3, heart rate is 100, blood pressure 108/5, oxygen saturation 92% on room air. HEENT: Normocephalic, atraumatic. NECK: Supple, no thyromegaly, no jugular venous distention. CARDIOVASCULAR: Regular rate and rhythm, S1, S2. No murmurs, rubs, or gallops. CHEST: There is diffuse wheezing bilaterally with some occasional rhonchi. ABDOMEN: Morbidly obese. EXTREMITIES: No cyanosis, clubbing or edema. LABORATORY DATA: BUN is 18, creatinine is 0.72. BNP is 2130. Hemoglobin is 9.5, platelets are 297 . Chest x-ray: Prominent right interlobar pulmonary artery versus focal area of opacification. IMPRESSION: 1. Shortness of breath with mild hypoxemic respiratory insufficiency. This is likely due to combin ation of mild volume overload as well as what appears to be a component of bronchospasm, possibly re presenting adult-onset asthma. 2. Right lower lung field hilar opacity, most consistent with interlobar pulmonary artery; however, cannot rule out a focal infiltrate. RECOMMENDATIONS: 1. De-escalate antibiotics. 2. Start systemic corticosteroids. 3. Continue diuresis. 4. DVT and GI prophylaxis. 5. Repeat an x-ray in about 4 to 6 weeks. If those findings are not improved, may consider chest C T. Dictated By: EBONIE SOL MD NK/NTS Conf#: [id number] DID#: [id number] CC: SCAR HILL MD; FAIZAN PARRA NP;*EndCC*
[2016-07-12] MEDS: HYDROCODONE/APAP (5/325) TAB PO PRN (20:56)
[2016-07-12] MEDS: traZODone 50 MG TAB PO SCH (20:56)
[2016-07-12] MEDS: METHYLPREDNISOLONE 40 MG INJ IV SCH (22:00)
[2016-07-13] VITALS (11 sets, daily range): BP systolic 99–140; BP diastolic 60–87; PULSE 76–95; RESP 16–20
[2016-07-13] MEDS: ACCUCHECK XX SCH (02:00)
[2016-07-13] MEDS: ALBUTEROL/IPRATROPIUM (NEB) 3 ML AMP HHN PRN (05:43)
[2016-07-13] MEDS: METHYLPREDNISOLONE 40 MG INJ IV SCH ×3 (06:00→22:00)
[2016-07-13] MEDS: PANTOPRAZOLE (EC) 40 MG TAB PO SCH (06:24)
[2016-07-13] MEDS: FUROSEMIDE 40 MG INJ IV SCH (06:24)
[2016-07-13 06:37] LABS: ADD SCAN DIFF NO
[2016-07-13 06:56] LABS: BASOPHILS % 0.3 % (0.0-2.0); EOSINOPHILS # 0.1 10^3/ul (0.0-0.5); EOSINOPHILS % 2.2 % (0.0-7.0); HEMATOCRIT 27.3 % (37.0-47.0); HEMOGLOBIN 8.5 g/dl (12.0-16.0); LYMPHOCYTES # 1.5 10^3/ul (0.8-2.9); LYMPHOCYTES % 24.8 % (15.0-51.0); MEAN CORPUSCULAR HEMOGLOBIN 25.1 pg (29.0-33.0); MEAN CORPUSCULAR HGB CONC 31.1 g/dl (32.0-37.0); MEAN CORPUSCULAR VOLUME 80.5 fl (82.0-101.0); MEAN PLATELET VOLUME 10.7 fl (7.4-10.4); MONOCYTE # 0.3 10^3/ul (0.3-0.9); MONOCYTES % 5.6 % (0.0-11.0); NEUTROPHIL # 3.9 10^3/ul (1.6-7.5); NEUTROPHILS % 65.8 % (39.0-77.0); PLATELET COUNT 262 10^3/UL (140-415); RED BLOOD COUNT 3.39 10^6/ul (4.20-5.40); WHITE BLOOD COUNT 5.9 10^3/ul (4.8-10.8)
[2016-07-13 07:07] LABS: POTASSIUM 3.1 mmol/L (3.5-5.1)
[2016-07-13 07:09] LABS: CREATININE 0.78 mg/dl (0.44-1.00)
[2016-07-13 07:10] LABS: CALCIUM 8.3 mg/dl (8.4-10.2)
[2016-07-13] MEDS: ALBUTEROL/IPRATROPIUM (NEB) 3 ML AMP HHN SCH ×3 (07:36→19:31)
[2016-07-13] MEDS: VALSARTAN 160 MG TAB PO SCH (07:44)
[2016-07-13] MEDS: FERROUS SULFATE (EC) 325 MG TAB PO SCH ×2 (07:44→20:03)
[2016-07-13] MEDS: DULOXETINE 30 MG CAP DR PO SCH (07:44)
[2016-07-13] MEDS: AMLODIPINE 10 MG TAB PO SCH (07:45)
[2016-07-13] MEDS: INSULIN ASPART [NOVOLOG] 3 ML PEN SC SCH ×7 (07:46→20:11)
[2016-07-13] MEDS: INSULIN GLARGINE [LANtus] 3 ML PEN SC SCH (07:47)
[2016-07-13] MEDS: HEPARIN 5,000 UNIT/0.5 ML SYG SC SCH ×2 (07:48→20:10)
--- NOTE | 2016-07-13 09:54 | RADRPT ---
PROCEDURE: XR Chest. CLINICAL INDICATION: Shortness of breath. TECHNIQUE: Single frontal view. COMPARISON: 07/12/2016. FINDINGS: There is right basilar medial pneumonia. The lungs are otherwise clear. The heart is enlarged. There is calcification in the aorta consistent with atherosclerosis. There is no pleural effusion. There is no pneumothorax. IMPRESSION: 1. Pneumonia at the right lung base medially, unchanged. 2. Cardiomegaly and atherosclerosis. RPTAT: QQ .Ashwin Alexander MD, MD Date Time Electronically viewed and signed by .Ashwin Alexander MD, MD on 07/13/2016 09:53 .R/
[2016-07-13] MEDS ORDERED: POTASSIUM CHLORIDE (SR) 20 MEQ TAB PO STA (10:53)
[2016-07-13] MEDS: LEVOFLOXACIN 500MG/D5W (PMX) 100 ML IVPB SCH (12:07)
--- NOTE | 2016-07-13 14:02 | PN ---
Date/Time of Note Date/Time of Note DATE: 07/13/16 TIME: 13:59 Assessment/Plan VTE Prophylaxis VTE Prophylaxis Intervention: heparin Lines/Catheters IV [facility] [place] Urinary Cath still in place: No Assessment/Plan Chief Complaint/Hosp Course Impression and plan 1. Sepsis secondary to right lower lung lobe pneumonia. Of note influenza A and B are negative. Continue on antibiotics. ID following. Improving at present 2. Dyspnea likely secondary to #1. Continue bronchodilation O2 supplement. Continue also on oxygen as needed. Less wheezing today. Continue to titrate down O2 as tolerated. Continue with front office administrator recommendations 3. Iron deficiency anemia. Continue on iron supplement for now. We will continue to monitor H&H 4. History of depression. Continue on Cymbalta. Stable at present 5. History of CHF. Echocardiogram with ejection fraction at 65% with stage I diastolic dysfunction. Continue optimization with cardiovascular medications. Responding well to Lasix. Continue 6. Essential hypertension. Continue on antihypertensives and adjust as needed Disposition and plan: Continue with front office administrator recommendations. Continue on O2. Titrate down as tolerated. Continue to monitor for clinical improvement Discussed plan of care with Dr. Blackwell Problems: Subjective 24 Hr Interval Summary Free Text/Dictation Less shortness of breath noted at this time. Less wheezing Exam/Review of Systems Vital Signs Vitals Vital Signs Date Time Temp Pulse Resp B/P Pulse Ox O2 Delivery O2 Flow Rate FiO2 07/13/16 13:02 87 07/13/16 12:48 97.8 20 139/63 97 Nasal Cannula 2.0 Intake and Output 07/12/16 07/12/16 07/13/16 15:00 23:00 07:00 Intake Total 100 ml 760 ml 600 ml Balance 100 ml 760 ml 600 ml Exam General: Less shortness of breath reported at this time Eyes: pupils equal round, Anicteric sclera Neck: No JVD noted Cardiac: Tachycardic at times with also regular rate Pulmonary: Less wheezing noted today. Still with some congestion GI: Nontender nondistended Extremities: Minimal edema bilateral lower extremities today Skin: Clean dry and intact Neurologic: Alert to person place and time and situation Results Result Diagram: 07/13/16 0510 07/13/16 0518 Results 24 hrs Laboratory Tests Test 07/12/16 16:56 07/12/16 20:55 07/13/16 05:10 07/13/16 05:18 Bedside Glucose 157 111 Basophils # 0.0 Basophils % 0.3 Eosinophils # 0.1 Eosinophils % 2.2 Hematocrit 27.3 L Hemoglobin 8.5 L Lymphocytes # 1.5 Lymphocytes % 24.8 Mean Corpuscular Hemoglobin 25.1 L Mean Corpuscular Hemoglobin Concent 31.1 L Mean Corpuscular Volume 80.5 L Mean Platelet Volume 10.7 H Monocytes # 0.3 Monocytes % 5.6 Neutrophils # 3.9 Neutrophils % 65.8 Nucleated Red Blood Cells # 0.0 Nucleated Red Blood Cells % 0.0 Platelet Count 262 Red Blood Count 3.39 L Red Cell Distribution Width 15.0 H White Blood Count 5.9 # Anion Gap 14 Blood Urea Nitrogen 24 H Calcium Level 8.3 L Carbon Dioxide Level 28 Chloride Level 103 Creatinine 0.78 Glucose Level 139 # Potassium Level 3.1 L Sodium Level 142 Test 07/13/16 07:04 07/13/16 11:41 Bedside Glucose 159 100 Medications Medications Current Medications Amlodipine Besylate (Norvasc) 10 mg DAILY PO Last administered on 07/13/16 07: 45; Admin Dose 10 MG; Start 07/11/16 at 09:00 Duloxetine HCl (Cymbalta) 60 mg DAILY PO Last administered on 07/13/16 07:44; Admin Dose 60 MG; Start 07/11/16 at 09:00 Ferrous Sulfate (Ferrous Sulfate (Ec)) 325 mg BID PO Last administered on 07:44; Admin Dose 325 MG; Start 07/10/16 at 21:00 Ibuprofen (Motrin) 400 mg Q6H PRN PO PAIN; Start 07/10/16 at 14:00 Trazodone HCl (Desyrel) 50 mg QHS PO Last administered on 07/12/16 20:56; Admin Dose 50 MG; Start 07/10/16 at 21:00 Valsartan (Diovan) 160 mg DAILY PO Last administered on 07/13/16 07:44; Admin Dose 160 MG; Start 07/11/16 at 09:00 Pantoprazole 40 mg 40 mg DAILY@06 PO Last administered on 07/13/16 06:24; Admin Dose 40 MG; Start 07/11/16 at 06:00 Sodium Chloride (NS) 1,000 ml @ 100 mls/hr Q10H IV Last administered on 13:34; Admin Dose 100 MLS/HR; Start 07/10/16 at 17:00; Status Future Hold Ondansetron HCl (Zofran Inj) 4 mg Q6H PRN IV NAUSEA AND/OR VOMITING; Start 07/10 at 14:00 Acetaminophen (Tylenol Tab) 650 mg Q6H PRN PO PAIN LEVEL 1-3 OR FEVER; Start at 14:00 Acetaminophen (Tylenol Supp) 650 mg Q6H PRN [place] PAIN LEVEL 1-3 OR FEVER; Start 07/10/16 at 14:00 Acetaminophen/ Hydrocodone Bitart ([place] (5/325)) 1 tab Q6H PRN PO MODERATE PAIN LEVEL 4-6 Last administered on 07/12/16 20:56; Admin Dose 1 TAB; Start 07/10 at 14:00 Acetaminophen/ Hydrocodone Bitart ([place] (5/325)) 2 tab Q6H PRN PO SEVERE PAIN LEVEL 7-10 Last administered on 07/11/16 15:29; Admin Dose 2 TAB; Start 07/10/16 at 14:00 Morphine Sulfate (morphine) 2 mg Q4H PRN IV SEVERE PAIN LEVEL 7-10 Last administered on 07/12/16 00:35; Admin Dose 2 MG; Start 07/10/16 at 14:00 Docusate Sodium (Colace) 100 mg Q12H PRN PO CONSTIPATION; Start 07/10/16 at 14: 00 Magnesium Hydroxide (Milk Of Mag) 30 ml DAILY PRN PO CONSTIPATION; Start at 14:00 Bisacodyl 10 mg 10 mg DAILY PRN [place] CONSTIPATION; Start 07/10/16 at 14:00 Levofloxacin/ Dextrose (Levaquin 500mg/ D5W 100 ml (Pmx)) 100 ml @ 100 mls/hr Q24H IVPB Last administered on 07/13/16 12:07; Admin Dose 100 MLS/HR; Start 07/11/16 at 12:00 Furosemide (Lasix) 40 mg DAILY@06 IV Last administered on 07/13/16 06:24; Admin Dose 40 MG; Start 07/11/16 at 06:00 Diagnostic Test (Pha) (Accucheck) 1 ea 02 XX Last administered on 07/12/16 02: 39; Admin Dose 1 EA; Start 07/12/16 at 02:00 Miscellaneous Information 1 ea NOTE XX ; Start 07/11/16 at 14:30 Glucose (Glutose) 15 gm Q15M PRN PO DECREASED GLUCOSE; Start 07/11/16 at 14:30 Glucose (Glutose) 22.5 gm Q15M PRN PO DECREASED GLUCOSE; Start 07/11/16 at 14:30 Dextrose (D50w Syringe) 25 ml Q15M PRN IV DECREASED GLUCOSE; Start 07/11/16 at 14:30 Dextrose (D50w Syringe) 50 ml Q15M PRN IV DECREASED GLUCOSE; Start 07/11/16 at 14:30 Glucagon (Glucagen) 1 mg Q15M PRN IM DECREASED GLUCOSE; Start 07/11/16 at 14:30 Glucose (Glutose) 15 gm Q15M PRN BUCCAL DECREASED GLUCOSE; Start 07/11/16 at 14: 30 Heparin Sodium (Porcine) (Heparin (5000 Units/0.5 ml)) 5,000 unit BID SC Last administered on 07/13/16 07:48; Admin Dose 5,000 UNIT; Start 07/11/16 at 21:00 Insulin Glargine (Lantus) 18 unit DAILY@08 SC Last administered on 07/13/16 07: 47; Admin Dose 18 UNIT; Start 07/13/16 at 08:00 Methylprednisolone Sodium Succinate (Solu-Medrol) 40 mg Q8 IV ; Start 07/12/16 at 22:00 Clonidine (Catapres) 0.1 mg Q6H PRN PO ELEVATED BLOOD PRESSURE Last administered on 07/13/16 04:51; Admin Dose 0.1 MG; Start 07/13/16 at 05:00 Hydralazine HCl (Apresoline) 10 mg Q4H PRN IV ELEVATED BLOOD PRESSURE>150; Start 07/13/16 at 05:00 MICHELA PARRA Jul 13, 2016 14:01
--- NOTE | 2016-07-13 14:06 | CONS ---
Date/Time of Note Date/Time of Note DATE: 07/13/16 TIME: 14:04 Consult Date/Type/Reason Admit Date/Time Jul 10, 2016 at 12:34 Initial Consult Date Type of Consultation: Pulm Subjective Slightly better today. Less dyspneic. Objective Vital Signs Date Time Temp Pulse Resp B/P Pulse Ox O2 Delivery O2 Flow Rate FiO2 07/13/16 13:02 87 07/13/16 12:48 97.8 20 139/63 97 Nasal Cannula 2.0 Intake and Output 07/12/16 07/12/16 07/13/16 15:00 23:00 07:00 Intake Total 100 ml 760 ml 600 ml Balance 100 ml 760 ml 600 ml HEENT: Normocephalic, atraumatic. NECK: Supple, no thyromegaly, no jugular venous distention. CARDIOVASCULAR: Regular rate and rhythm, S1, S2. No murmurs, rubs, or gallops. CHEST: There is diffuse wheezing bilaterally with some occasional rhonchi. ABDOMEN: Morbidly obese. EXTREMITIES: No cyanosis, clubbing or edema. Results/Medications Result Diagram: 07/13/16 0510 07/13/16 0518 Results 24 hrs Laboratory Tests Test 07/12/16 16:56 07/12/16 20:55 07/13/16 05:10 07/13/16 05:18 Bedside Glucose 157 111 Basophils # 0.0 Basophils % 0.3 Eosinophils # 0.1 Eosinophils % 2.2 Hematocrit 27.3 L Hemoglobin 8.5 L Lymphocytes # 1.5 Lymphocytes % 24.8 Mean Corpuscular Hemoglobin 25.1 L Mean Corpuscular Hemoglobin Concent 31.1 L Mean Corpuscular Volume 80.5 L Mean Platelet Volume 10.7 H Monocytes # 0.3 Monocytes % 5.6 Neutrophils # 3.9 Neutrophils % 65.8 Nucleated Red Blood Cells # 0.0 Nucleated Red Blood Cells % 0.0 Platelet Count 262 Red Blood Count 3.39 L Red Cell Distribution Width 15.0 H White Blood Count 5.9 # Anion Gap 14 Blood Urea Nitrogen 24 H Calcium Level 8.3 L Carbon Dioxide Level 28 Chloride Level 103 Creatinine 0.78 Glucose Level 139 # Potassium Level 3.1 L Sodium Level 142 Test 07/13/16 07:04 07/13/16 11:41 Bedside Glucose 159 100 Medications Current Medications Amlodipine Besylate (Norvasc) 10 mg DAILY PO Last administered on 07/13/16 07: 45; Admin Dose 10 MG; Start 07/11/16 at 09:00 Duloxetine HCl (Cymbalta) 60 mg DAILY PO Last administered on 07/13/16 07:44; Admin Dose 60 MG; Start 07/11/16 at 09:00 Ferrous Sulfate (Ferrous Sulfate (Ec)) 325 mg BID PO Last administered on 07:44; Admin Dose 325 MG; Start 07/10/16 at 21:00 Ibuprofen (Motrin) 400 mg Q6H PRN PO PAIN; Start 07/10/16 at 14:00 Trazodone HCl (Desyrel) 50 mg QHS PO Last administered on 07/12/16 20:56; Admin Dose 50 MG; Start 07/10/16 at 21:00 Valsartan (Diovan) 160 mg DAILY PO Last administered on 07/13/16 07:44; Admin Dose 160 MG; Start 07/11/16 at 09:00 Pantoprazole 40 mg 40 mg DAILY@06 PO Last administered on 07/13/16 06:24; Admin Dose 40 MG; Start 07/11/16 at 06:00 Sodium Chloride (NS) 1,000 ml @ 100 mls/hr Q10H IV Last administered on 13:34; Admin Dose 100 MLS/HR; Start 07/10/16 at 17:00; Status Future Hold Ondansetron HCl (Zofran Inj) 4 mg Q6H PRN IV NAUSEA AND/OR VOMITING; Start 07/10 at 14:00 Acetaminophen (Tylenol Tab) 650 mg Q6H PRN PO PAIN LEVEL 1-3 OR FEVER; Start at 14:00 Acetaminophen (Tylenol Supp) 650 mg Q6H PRN [place] PAIN LEVEL 1-3 OR FEVER; Start 07/10/16 at 14:00 Acetaminophen/ Hydrocodone Bitart ([place] (5/325)) 1 tab Q6H PRN PO MODERATE PAIN LEVEL 4-6 Last administered on 07/12/16 20:56; Admin Dose 1 TAB; Start 07/10 at 14:00 Acetaminophen/ Hydrocodone Bitart ([place] (5/325)) 2 tab Q6H PRN PO SEVERE PAIN LEVEL 7-10 Last administered on 07/11/16 15:29; Admin Dose 2 TAB; Start 07/10/16 at 14:00 Morphine Sulfate (morphine) 2 mg Q4H PRN IV SEVERE PAIN LEVEL 7-10 Last administered on 07/12/16 00:35; Admin Dose 2 MG; Start 07/10/16 at 14:00 Docusate Sodium (Colace) 100 mg Q12H PRN PO CONSTIPATION; Start 07/10/16 at 14: 00 Magnesium Hydroxide (Milk Of Mag) 30 ml DAILY PRN PO CONSTIPATION; Start at 14:00 Bisacodyl 10 mg 10 mg DAILY PRN [place] CONSTIPATION; Start 07/10/16 at 14:00 Levofloxacin/ Dextrose (Levaquin 500mg/ D5W 100 ml (Pmx)) 100 ml @ 100 mls/hr Q24H IVPB Last administered on 07/13/16 12:07; Admin Dose 100 MLS/HR; Start 07/11/16 at 12:00 Furosemide (Lasix) 40 mg DAILY@06 IV Last administered on 07/13/16 06:24; Admin Dose 40 MG; Start 07/11/16 at 06:00 Diagnostic Test (Pha) (Accucheck) 1 ea 02 XX Last administered on 07/12/16 02: 39; Admin Dose 1 EA; Start 07/12/16 at 02:00 Miscellaneous Information 1 ea NOTE XX ; Start 07/11/16 at 14:30 Glucose (Glutose) 15 gm Q15M PRN PO DECREASED GLUCOSE; Start 07/11/16 at 14:30 Glucose (Glutose) 22.5 gm Q15M PRN PO DECREASED GLUCOSE; Start 07/11/16 at 14:30 Dextrose (D50w Syringe) 25 ml Q15M PRN IV DECREASED GLUCOSE; Start 07/11/16 at 14:30 Dextrose (D50w Syringe) 50 ml Q15M PRN IV DECREASED GLUCOSE; Start 07/11/16 at 14:30 Glucagon (Glucagen) 1 mg Q15M PRN IM DECREASED GLUCOSE; Start 07/11/16 at 14:30 Glucose (Glutose) 15 gm Q15M PRN BUCCAL DECREASED GLUCOSE; Start 07/11/16 at 14: 30 Heparin Sodium (Porcine) (Heparin (5000 Units/0.5 ml)) 5,000 unit BID SC Last administered on 07/13/16 07:48; Admin Dose 5,000 UNIT; Start 07/11/16 at 21:00 Insulin Glargine (Lantus) 18 unit DAILY@08 SC Last administered on 07/13/16 07: 47; Admin Dose 18 UNIT; Start 07/13/16 at 08:00 Methylprednisolone Sodium Succinate (Solu-Medrol) 40 mg Q8 IV ; Start 07/12/16 at 22:00 Clonidine (Catapres) 0.1 mg Q6H PRN PO ELEVATED BLOOD PRESSURE Last administered on 07/13/16 04:51; Admin Dose 0.1 MG; Start 07/13/16 at 05:00 Hydralazine HCl (Apresoline) 10 mg Q4H PRN IV ELEVATED BLOOD PRESSURE>150; Start 07/13/16 at 05:00 Assessment/Plan Additional Assessment/Plan IMPRESSION: 1. Shortness of breath with mild hypoxemic respiratory insufficiency. This is likely due to combination of mild volume overload as well as what appears to be a component of bronchospasm, possibly representing adult-onset asthma. 2. Right lower lung field hilar opacity, most consistent with interlobar pulmonary artery; however, cannot rule out a focal infiltrate. RECOMMENDATIONS: 1. De-escalate antibiotics. 2. Start systemic corticosteroids. 3. Continue diuresis as creatinine remains stable 4. Mobilize OOB 5. Repeat CXR in 4-6 weeks. EBONIE SOL MD Jul 13, 2016 14:06
--- NOTE | 2016-07-13 15:38 | CONS ---
Date/Time of Note Date/Time of Note DATE: 07/13/16 TIME: 15:37 Assessment/Plan Assessment/Plan Chief Complaint/Hosp Course SUBJECTIVE: No events overnight. Comfortable on nc, no fevers, less SOB. MICROBIOLOGY: Blood cultures negative. Influenza swab negative. ALLERGIES: PENICILLIN. ANTIMICROBIALS: Levaquin. PHYSICAL EXAMINATION: GENERAL: This is a morbidly obese elderly [place] woman who is alert, in no distress. HEENT: Head atraumatic, normocephalic. Sclerae anicteric. Buccal mucosa dry. NECK: Supple, trachea midline. CHEST: Rise symmetrical. Breath sounds diminished at the bases. HEART: S1, S2. ABDOMEN: Soft, bowel tones present. EXTREMITIES: Without cyanosis. ASSESSMENT: 1. Systemic inflammatory response syndrome 2. Community-acquired pneumonia. 3. Morbid obesity. 4. Hypertension. PLAN: Improving. Continue abx, steroids, bronchodilators, f/u pulmonary rec-s [facility] staff Problems: Consultation Date/Type/Reason Admit Date/Time Jul 10, 2016 at 12:34 Type of Consultation: ID Exam/Review of Systems Vital Signs Vitals Vital Signs Date Time Temp Pulse Resp B/P Pulse Ox O2 Delivery O2 Flow Rate FiO2 07/13/16 14:30 84 20 96 Nasal Cannula 3.0 07/13/16 12:48 97.8 139/63 Intake and Output 07/12/16 07/12/16 07/13/16 15:00 23:00 07:00 Intake Total 100 ml 760 ml 600 ml Balance 100 ml 760 ml 600 ml Results Result Diagram: 07/13/16 0510 07/13/16 0518 Results 24 hrs Laboratory Tests Test 07/12/16 16:56 07/12/16 20:55 07/13/16 05:10 07/13/16 05:18 Bedside Glucose 157 111 Basophils # 0.0 Basophils % 0.3 Eosinophils # 0.1 Eosinophils % 2.2 Hematocrit 27.3 L Hemoglobin 8.5 L Lymphocytes # 1.5 Lymphocytes % 24.8 Mean Corpuscular Hemoglobin 25.1 L Mean Corpuscular Hemoglobin Concent 31.1 L Mean Corpuscular Volume 80.5 L Mean Platelet Volume 10.7 H Monocytes # 0.3 Monocytes % 5.6 Neutrophils # 3.9 Neutrophils % 65.8 Nucleated Red Blood Cells # 0.0 Nucleated Red Blood Cells % 0.0 Platelet Count 262 Red Blood Count 3.39 L Red Cell Distribution Width 15.0 H White Blood Count 5.9 # Anion Gap 14 Blood Urea Nitrogen 24 H Calcium Level 8.3 L Carbon Dioxide Level 28 Chloride Level 103 Creatinine 0.78 Glucose Level 139 # Potassium Level 3.1 L Sodium Level 142 Test 07/13/16 07:04 07/13/16 11:41 Bedside Glucose 159 100 Medications Medications Current Medications Amlodipine Besylate (Norvasc) 10 mg DAILY PO Last administered on 07/13/16 07: 45; Admin Dose 10 MG; Start 07/11/16 at 09:00 Duloxetine HCl (Cymbalta) 60 mg DAILY PO Last administered on 07/13/16 07:44; Admin Dose 60 MG; Start 07/11/16 at 09:00 Ferrous Sulfate (Ferrous Sulfate (Ec)) 325 mg BID PO Last administered on 07:44; Admin Dose 325 MG; Start 07/10/16 at 21:00 Ibuprofen (Motrin) 400 mg Q6H PRN PO PAIN; Start 07/10/16 at 14:00 Trazodone HCl (Desyrel) 50 mg QHS PO Last administered on 07/12/16 20:56; Admin Dose 50 MG; Start 07/10/16 at 21:00 Valsartan (Diovan) 160 mg DAILY PO Last administered on 07/13/16 07:44; Admin Dose 160 MG; Start 07/11/16 at 09:00 Pantoprazole 40 mg 40 mg DAILY@06 PO Last administered on 07/13/16 06:24; Admin Dose 40 MG; Start 07/11/16 at 06:00 Sodium Chloride (NS) 1,000 ml @ 100 mls/hr Q10H IV Last administered on 13:34; Admin Dose 100 MLS/HR; Start 07/10/16 at 17:00; Status Future Hold Ondansetron HCl (Zofran Inj) 4 mg Q6H PRN IV NAUSEA AND/OR VOMITING; Start 07/10 at 14:00 Acetaminophen (Tylenol Tab) 650 mg Q6H PRN PO PAIN LEVEL 1-3 OR FEVER; Start at 14:00 Acetaminophen (Tylenol Supp) 650 mg Q6H PRN [place] PAIN LEVEL 1-3 OR FEVER; Start 07/10/16 at 14:00 Acetaminophen/ Hydrocodone Bitart ([place] (5/325)) 1 tab Q6H PRN PO MODERATE PAIN LEVEL 4-6 Last administered on 07/12/16 20:56; Admin Dose 1 TAB; Start 07/10 at 14:00 Acetaminophen/ Hydrocodone Bitart ([place] (5/325)) 2 tab Q6H PRN PO SEVERE PAIN LEVEL 7-10 Last administered on 07/11/16 15:29; Admin Dose 2 TAB; Start 07/10/16 at 14:00 Morphine Sulfate (morphine) 2 mg Q4H PRN IV SEVERE PAIN LEVEL 7-10 Last administered on 07/12/16 00:35; Admin Dose 2 MG; Start 07/10/16 at 14:00 Docusate Sodium (Colace) 100 mg Q12H PRN PO CONSTIPATION; Start 07/10/16 at 14: 00 Magnesium Hydroxide (Milk Of Mag) 30 ml DAILY PRN PO CONSTIPATION; Start at 14:00 Bisacodyl 10 mg 10 mg DAILY PRN [place] CONSTIPATION; Start 07/10/16 at 14:00 Levofloxacin/ Dextrose (Levaquin 500mg/ D5W 100 ml (Pmx)) 100 ml @ 100 mls/hr Q24H IVPB Last administered on 07/13/16 12:07; Admin Dose 100 MLS/HR; Start 07/11/16 at 12:00 Furosemide (Lasix) 40 mg DAILY@06 IV Last administered on 07/13/16 06:24; Admin Dose 40 MG; Start 07/11/16 at 06:00 Diagnostic Test (Pha) (Accucheck) 1 ea 02 XX Last administered on 07/12/16 02: 39; Admin Dose 1 EA; Start 07/12/16 at 02:00 Miscellaneous Information 1 ea NOTE XX ; Start 07/11/16 at 14:30 Glucose (Glutose) 15 gm Q15M PRN PO DECREASED GLUCOSE; Start 07/11/16 at 14:30 Glucose (Glutose) 22.5 gm Q15M PRN PO DECREASED GLUCOSE; Start 07/11/16 at 14:30 Dextrose (D50w Syringe) 25 ml Q15M PRN IV DECREASED GLUCOSE; Start 07/11/16 at 14:30 Dextrose (D50w Syringe) 50 ml Q15M PRN IV DECREASED GLUCOSE; Start 07/11/16 at 14:30 Glucagon (Glucagen) 1 mg Q15M PRN IM DECREASED GLUCOSE; Start 07/11/16 at 14:30 Glucose (Glutose) 15 gm Q15M PRN BUCCAL DECREASED GLUCOSE; Start 07/11/16 at 14: 30 Heparin Sodium (Porcine) (Heparin (5000 Units/0.5 ml)) 5,000 unit BID SC Last administered on 07/13/16 07:48; Admin Dose 5,000 UNIT; Start 07/11/16 at 21:00 Insulin Glargine (Lantus) 18 unit DAILY@08 SC Last administered on 07/13/16 07: 47; Admin Dose 18 UNIT; Start 07/13/16 at 08:00 Methylprednisolone Sodium Succinate (Solu-Medrol) 40 mg Q8 IV ; Start 07/12/16 at 22:00 Clonidine (Catapres) 0.1 mg Q6H PRN PO ELEVATED BLOOD PRESSURE Last administered on 07/13/16 04:51; Admin Dose 0.1 MG; Start 07/13/16 at 05:00 Hydralazine HCl (Apresoline) 10 mg Q4H PRN IV ELEVATED BLOOD PRESSURE>150; Start 07/13/16 at 05:00 JASSON TAYLOR NP Jul 13, 2016 15:38
[2016-07-13] MEDS: HYDROCODONE/APAP (5/325) TAB PO PRN (20:03)
[2016-07-13] MEDS: traZODone 50 MG TAB PO SCH (20:03)
[2016-07-14] VITALS (11 sets, daily range): BP systolic 133–167; BP diastolic 65–80; PULSE 72–131; RESP 16–20
[2016-07-14] MEDS: ACCUCHECK XX SCH (02:00)
[2016-07-14] MEDS: METHYLPREDNISOLONE 40 MG INJ IV SCH ×3 (06:00→22:29)
[2016-07-14] MEDS: FUROSEMIDE 40 MG INJ IV SCH (06:23)
[2016-07-14] MEDS: PANTOPRAZOLE (EC) 40 MG TAB PO SCH (06:23)
[2016-07-14] MEDS: HYDROCODONE/APAP (5/325) TAB PO PRN (06:37)
[2016-07-14 07:52] LABS: ADD SCAN DIFF NO
[2016-07-14 07:55] LABS: ABNORMAL IP MESSAGE 1; BASOPHILS % 0.4 % (0.0-2.0); EOSINOPHILS # 0.2 10^3/ul (0.0-0.5); EOSINOPHILS % 3.3 % (0.0-7.0); HEMATOCRIT 30.4 % (37.0-47.0); HEMOGLOBIN 9.5 g/dl (12.0-16.0); LYMPHOCYTES # 1.8 10^3/ul (0.8-2.9); MEAN CORPUSCULAR HEMOGLOBIN 25.1 pg (29.0-33.0); MEAN CORPUSCULAR HGB CONC 31.3 g/dl (32.0-37.0); MEAN CORPUSCULAR VOLUME 80.4 fl (82.0-101.0); MEAN PLATELET VOLUME 9.7 fl (7.4-10.4); MONOCYTE # 0.3 10^3/ul (0.3-0.9); MONOCYTES % 6.5 % (0.0-11.0); NEUTROPHIL # 2.3 10^3/ul (1.6-7.5); NEUTROPHILS % 47.4 % (39.0-77.0); PLATELET COUNT 299 10^3/UL (140-415); RED BLOOD COUNT 3.78 10^6/ul (4.20-5.40); RED CELL DISTRIBUTION WIDTH 14.8 % (11.5-14.5); WHITE BLOOD COUNT 4.8 10^3/ul (4.8-10.8)
[2016-07-14] MEDS: ALBUTEROL/IPRATROPIUM (NEB) 3 ML AMP HHN SCH ×3 (08:04→20:04)
[2016-07-14 08:10] LABS: POTASSIUM 3.4 mmol/L (3.5-5.1)
[2016-07-14 08:12] LABS: CREATININE 0.83 mg/dl (0.44-1.00)
[2016-07-14 08:13] LABS: CALCIUM 8.2 mg/dl (8.4-10.2)
[2016-07-14] MEDS: AMLODIPINE 10 MG TAB PO SCH (09:22)
[2016-07-14] MEDS: VALSARTAN 160 MG TAB PO SCH (09:22)
[2016-07-14] MEDS: FERROUS SULFATE (EC) 325 MG TAB PO SCH ×2 (09:22→20:45)
[2016-07-14] MEDS: DULOXETINE 30 MG CAP DR PO SCH (09:22)
[2016-07-14] MEDS: INSULIN ASPART [NOVOLOG] 3 ML PEN SC SCH ×7 (09:23→20:44)
[2016-07-14] MEDS: INSULIN GLARGINE [LANtus] 3 ML PEN SC SCH (09:25)
[2016-07-14] MEDS: HEPARIN 5,000 UNIT/0.5 ML SYG SC SCH ×2 (09:27→20:45)
--- NOTE | 2016-07-14 12:29 | CONS ---
Date/Time of Note Date/Time of Note DATE: 07/14/16 TIME: 12:28 Assessment/Plan Assessment/Plan Chief Complaint/Hosp Course SUBJECTIVE: No events overnight. Sleeping, looks comfortable, no fevers, less SOB. MICROBIOLOGY: Blood cultures negative. Influenza swab negative. ALLERGIES: PENICILLIN. ANTIMICROBIALS: Levaquin. PHYSICAL EXAMINATION: GENERAL: This is a morbidly obese elderly [place] woman who is alert, in no distress. HEENT: Head atraumatic, normocephalic. Sclerae anicteric. Buccal mucosa dry. NECK: Supple, trachea midline. CHEST: Rise symmetrical. Breath sounds diminished at the bases. HEART: S1, S2. ABDOMEN: Soft, bowel tones present. EXTREMITIES: Without cyanosis. ASSESSMENT: 1. Systemic inflammatory response syndrome 2. Community-acquired pneumonia. 3. Morbid obesity. 4. Hypertension. PLAN: Continues to improve. Continue abx, steroids, bronchodilators, f/u pulmonary rec-s DW staff Problems: Consultation Date/Type/Reason Admit Date/Time Jul 10, 2016 at 12:34 Type of Consultation: ID Exam/Review of Systems Vital Signs Vitals Vital Signs Date Time Temp Pulse Resp B/P Pulse Ox O2 Delivery O2 Flow Rate FiO2 07/14/16 12:18 98.1 77 20 157/66 91 07/14/16 08:04 Nasal Cannula 2.0 07/13/16 19:38 21 Intake and Output 07/13/16 07/13/16 07/14/16 15:00 23:00 07:00 Intake Total 100 ml 1000 ml 300 ml Balance 100 ml 1000 ml 300 ml Results Result Diagram: 07/14/16 0730 07/14/16 0730 Results 24 hrs Laboratory Tests Test 07/13/16 16:48 07/13/16 20:06 07/14/16 07:30 07/14/16 08:07 Bedside Glucose 220 120 155 Anion Gap 14 Basophils # 0.0 Basophils % 0.4 Blood Urea Nitrogen 27 H Calcium Level 8.2 L Carbon Dioxide Level 29 Chloride Level 101 Creatinine 0.83 Eosinophils # 0.2 Eosinophils % 3.3 Glucose Level 147 Hematocrit 30.4 L Hemoglobin 9.5 L Lymphocytes # 1.8 Lymphocytes % 37.0 Mean Corpuscular Hemoglobin 25.1 L Mean Corpuscular Hemoglobin Concent 31.3 L Mean Corpuscular Volume 80.4 L Mean Platelet Volume 9.7 Monocytes # 0.3 Monocytes % 6.5 Neutrophils # 2.3 Neutrophils % 47.4 Nucleated Red Blood Cells # 0.0 Nucleated Red Blood Cells % 0.0 Platelet Count 299 Potassium Level 3.4 L Red Blood Count 3.78 L Red Cell Distribution Width 14.8 H Sodium Level 141 White Blood Count 4.8 Test 07/14/16 11:40 Bedside Glucose 126 Medications Medications Current Medications Amlodipine Besylate (Norvasc) 10 mg DAILY PO Last administered on 07/14/16 09: 22; Admin Dose 10 MG; Start 07/11/16 at 09:00 Duloxetine HCl (Cymbalta) 60 mg DAILY PO Last administered on 07/14/16 09:22; Admin Dose 60 MG; Start 07/11/16 at 09:00 Ferrous Sulfate (Ferrous Sulfate (Ec)) 325 mg BID PO Last administered on 09:22; Admin Dose 325 MG; Start 07/10/16 at 21:00 Ibuprofen (Motrin) 400 mg Q6H PRN PO PAIN; Start 07/10/16 at 14:00 Trazodone HCl (Desyrel) 50 mg QHS PO Last administered on 07/13/16 20:03; Admin Dose 50 MG; Start 07/10/16 at 21:00 Valsartan (Diovan) 160 mg DAILY PO Last administered on 07/14/16 09:22; Admin Dose 160 MG; Start 07/11/16 at 09:00 Pantoprazole 40 mg 40 mg DAILY@06 PO Last administered on 07/14/16 06:23; Admin Dose 40 MG; Start 07/11/16 at 06:00 Sodium Chloride (NS) 1,000 ml @ 100 mls/hr Q10H IV Last administered on 13:34; Admin Dose 100 MLS/HR; Start 07/10/16 at 17:00; Status Future Hold Ondansetron HCl (Zofran Inj) 4 mg Q6H PRN IV NAUSEA AND/OR VOMITING; Start 07/10 at 14:00 Acetaminophen (Tylenol Tab) 650 mg Q6H PRN PO PAIN LEVEL 1-3 OR FEVER; Start at 14:00 Acetaminophen (Tylenol Supp) 650 mg Q6H PRN [place] PAIN LEVEL 1-3 OR FEVER; Start 07/10/16 at 14:00 Acetaminophen/ Hydrocodone Bitart ([place] (5/325)) 1 tab Q6H PRN PO MODERATE PAIN LEVEL 4-6 Last administered on 07/14/16 06:37; Admin Dose 1 TAB; Start 07/10 at 14:00 Acetaminophen/ Hydrocodone Bitart ([place] (5/325)) 2 tab Q6H PRN PO SEVERE PAIN LEVEL 7-10 Last administered on 07/11/16 15:29; Admin Dose 2 TAB; Start 07/10/16 at 14:00 Morphine Sulfate (morphine) 2 mg Q4H PRN IV SEVERE PAIN LEVEL 7-10 Last administered on 07/12/16 00:35; Admin Dose 2 MG; Start 07/10/16 at 14:00 Docusate Sodium (Colace) 100 mg Q12H PRN PO CONSTIPATION; Start 07/10/16 at 14: 00 Magnesium Hydroxide (Milk Of Mag) 30 ml DAILY PRN PO CONSTIPATION; Start at 14:00 Bisacodyl (Dulcolax Supp) 10 mg DAILY PRN [place] CONSTIPATION; Start 07/10/16 at 14: 00 Furosemide (Lasix) 40 mg DAILY@06 IV Last administered on 07/14/16 06:23; Admin Dose 40 MG; Start 07/11/16 at 06:00 Diagnostic Test (Pha) (Accucheck) 1 ea 02 XX Last administered on 07/12/16 02: 39; Admin Dose 1 EA; Start 07/12/16 at 02:00 Miscellaneous Information 1 ea NOTE XX ; Start 07/11/16 at 14:30 Glucose (Glutose) 15 gm Q15M PRN PO DECREASED GLUCOSE; Start 07/11/16 at 14:30 Glucose (Glutose) 22.5 gm Q15M PRN PO DECREASED GLUCOSE; Start 07/11/16 at 14:30 Dextrose (D50w Syringe) 25 ml Q15M PRN IV DECREASED GLUCOSE; Start 07/11/16 at 14:30 Dextrose (D50w Syringe) 50 ml Q15M PRN IV DECREASED GLUCOSE; Start 07/11/16 at 14:30 Glucagon (Glucagen) 1 mg Q15M PRN IM DECREASED GLUCOSE; Start 07/11/16 at 14:30 Glucose (Glutose) 15 gm Q15M PRN BUCCAL DECREASED GLUCOSE; Start 07/11/16 at 14: 30 Heparin Sodium (Porcine) (Heparin (5000 Units/0.5 ml)) 5,000 unit BID SC Last administered on 07/14/16 09:27; Admin Dose 5,000 UNIT; Start 07/11/16 at 21:00 Insulin Glargine (Lantus) 18 unit DAILY@08 SC Last administered on 07/14/16 09: 25; Admin Dose 18 UNIT; Start 07/13/16 at 08:00 Methylprednisolone Sodium Succinate (Solu-Medrol) 40 mg Q8 IV Last administered on 07/14/16 12:26; Admin Dose 40 MG; Start 07/12/16 at 22:00 Clonidine (Catapres) 0.1 mg Q6H PRN PO ELEVATED BLOOD PRESSURE Last administered on 07/13/16 04:51; Admin Dose 0.1 MG; Start 07/13/16 at 05:00 Hydralazine HCl (Apresoline) 10 mg Q4H PRN IV ELEVATED BLOOD PRESSURE>150; Start 07/13/16 at 05:00 Levofloxacin (Levaquin) 500 mg DAILY@06 PO ; Start 07/15/16 at 06:00 JASSON TAYLOR NP Jul 14, 2016 12:28
--- NOTE | 2016-07-14 13:29 | PN ---
DATE: 07/14/2016 SUBJECTIVE: Patient remained stable overnight, no new events, comfortable at rest. PHYSICAL EXAMINATION: VITAL SIGNS: Temperature 98, pulse 77, blood pressure 157/66, O2 saturation 96% on 2 liters nasal c annula. NECK: Supple. No JVD or lymphadenopathy. CARDIAC: S1, S2, no added sounds or murmurs. CHEST: Diminished air entry bilaterally, few rales. ABDOMEN: Soft, nontender. No guarding or rebound. EXTREMITIES: No cyanosis, clubbing, 1+ edema. NEUROLOGIC: Generalized weakness. LABORATORY DATA: White count 4.8, hemoglobin 9.5, platelets of 299,000. BUN 27, creatinine 0.83. INR 0.98. IMAGING: Chest x-ray reviewed from yesterday shows right lower lobe atelectasis versus infiltrates. IMPRESSION AND PLAN: 1. Status post hypoxemic respiratory failure secondary to pneumonia. 2. Possible healthcare-associated pneumonia. 3. Probable underlying obstructive sleep apnea. 4. Congestive cardiac failure. PLAN: 1. Continue to encourage out of bed. 2. Continue diuresis. 3. Deescalation of antibiotics. 4. Continue systemic corticosteroids. 5. DVT and GI prophylaxis. Dictated By: SCAR SANDERS/MAKENZIE Conf#: [id number] DID#: [id number]
[2016-07-14] MEDS ORDERED: POTASSIUM CHLORIDE (SR) 10 MEQ TAB PO ONE (17:30)
--- NOTE | 2016-07-14 18:19 | PN ---
DATE: 07/14/2016 TIME OF EVALUATION: 1700. SUBJECTIVE DATA: Denies any dyspnea. Remains afebrile. OBJECTIVE DATA: VITAL SIGNS: Temperature 98.1, pulse rate 106, respiratory rate 20, blood pressure 146/66, oxygen saturation 95% on low flow O2. GENERAL: This is an obese [place] female lying in bed in no apparent distress. HEENT: Head normocephalic and atraumatic. Eyes: Anicteric sclerae. Conjunctivae clear. ENT: Nasal septum is midline. Oral mucosa is dry. NECK: Supple. No JVD noticed. RESPIRATORY: Bilaterally diminished breath sounds. A few fine rales heard, especially at the bases. CARDIAC: Regular rate and rhythm. S1 and S2 heard. ABDOMEN: Soft, nontender and nondistended. Bowel sounds positive in all 4 quadrants. GENITOURINARY: Deferred. EXTREMITIES: No cyanosis, no clubbing, no edema. Peripheral pulses are palpable. NEUROLOGIC: The patient is awake, alert and oriented. Cranial nerves are grossly intact. LABORATORY AND DIAGNOSTIC DATA: WBC 4.8, hemoglobin 9.5, hematocrit 30.4, platelet count 290. Sodium 141, potassium 3.4, chloride 100, carbon dioxide 20 , anion gap 14, BUN 27, creatinine 0.83, glucose 147, calcium 8.2. ASSESSMENT AND PLAN: 1. Community-acquired pneumonia. Continue antibiotics as per Infectious Disease. 2. Acute hypoxic respiratory failure, most probably secondary to underlying community-acquired pneumonia. Improving. Continue inhaled bronchodilators. Continue tapering dose of steroids. 3. Microcytic hypochromic anemia with underlying iron deficiency. Continue iron supplements. 4. Acute on chronic diastolic heart failure. Continue diuretics. 5. Type 2 diabetes mellitus. Newly diagnosed Vs new onset. Hemoglobin A1c 7.3. Continue sliding scale insulin along with Lantus insulin. Blood sugar was fairly well controlled. 6. Essential hypertension. Continue antihypertensives. 7. Dyslipidemia. We will start the patient on statin. 8. Hypokalemia. We will replete. 9. Fluid, electrolytes and nutrition. Carbohydrate controlled diet. 10. Deep venous thrombosis prophylaxis. Subcutaneous heparin. 11. Gastrointestinal prophylaxis. Proton pump inhibitors. PLAN: Continue diuresis. Continue antibiotics. Taper down steroids. The case was discussed with Dr. Martinez. Plan of care was explained to the patient's family over the phone. CHIRAG MARTINEZ MD AM/NTS Conf#: [id number] DID#: [id number] MTDD
[2016-07-14] MEDS: traZODone 50 MG TAB PO SCH (20:45)
[2016-07-14] MEDS: ATORVASTATIN 20 MG TAB PO SCH (20:45)
[2016-07-15] VITALS (14 sets, daily range): BP systolic 135–168; BP diastolic 59–79; PULSE 93–115; RESP 18–20
[2016-07-15] MEDS: hydrALAzine 20 MG INJ IV PRN ×2 (00:29→05:47)
[2016-07-15] MEDS: ACCUCHECK XX SCH (02:00)
[2016-07-15] MEDS: LEVOFLOXACIN 500 MG TAB PO SCH (05:46)
[2016-07-15] MEDS: FUROSEMIDE 40 MG INJ IV SCH (05:46)
[2016-07-15] MEDS: PANTOPRAZOLE (EC) 40 MG TAB PO SCH (05:46)
[2016-07-15] MEDS: METHYLPREDNISOLONE 40 MG INJ IV SCH (05:46)
[2016-07-15 07:09] LABS: ADD SCAN DIFF NO
[2016-07-15 07:24] LABS: ABNORMAL IP MESSAGE 1; BASOPHILS % 0.2 % (0.0-2.0); HEMATOCRIT 32.6 % (37.0-47.0); HEMOGLOBIN 10.1 g/dl (12.0-16.0); LYMPHOCYTES # 1.2 10^3/ul (0.8-2.9); LYMPHOCYTES % 19.2 % (15.0-51.0); MEAN CORPUSCULAR HEMOGLOBIN 24.5 pg (29.0-33.0); MEAN CORPUSCULAR VOLUME 78.9 fl (82.0-101.0); MONOCYTE # 0.2 10^3/ul (0.3-0.9); MONOCYTES % 2.7 % (0.0-11.0); NEUTROPHIL # 4.5 10^3/ul (1.6-7.5); NEUTROPHILS % 71.3 % (39.0-77.0); PLATELET COUNT 366 10^3/UL (140-415); RED BLOOD COUNT 4.13 10^6/ul (4.20-5.40); RED CELL DISTRIBUTION WIDTH 14.7 % (11.5-14.5); WHITE BLOOD COUNT 6.2 10^3/ul (4.8-10.8)
[2016-07-15 07:34] LABS: CREATININE 0.77 mg/dl (0.44-1.00)
[2016-07-15 07:35] LABS: CALCIUM 8.9 mg/dl (8.4-10.2)
[2016-07-15 07:37] LABS: MAGNESIUM 1.9 mg/dl (1.7-2.5); PHOSPHORUS 3.5 mg/dl (2.5-4.9)
[2016-07-15] MEDS: ALBUTEROL/IPRATROPIUM (NEB) 3 ML AMP HHN SCH ×3 (07:44→20:29)
[2016-07-15] MEDS: DULOXETINE 30 MG CAP DR PO SCH (08:17)
[2016-07-15] MEDS: FERROUS SULFATE (EC) 325 MG TAB PO SCH ×2 (08:17→20:48)
[2016-07-15] MEDS: AMLODIPINE 10 MG TAB PO SCH (08:18)
[2016-07-15] MEDS: VALSARTAN 160 MG TAB PO SCH (08:18)
[2016-07-15] MEDS: INSULIN ASPART [NOVOLOG] 3 ML PEN SC SCH ×7 (08:19→20:50)
[2016-07-15] MEDS: INSULIN GLARGINE [LANtus] 3 ML PEN SC SCH (08:20)
[2016-07-15] MEDS: HEPARIN 5,000 UNIT/0.5 ML SYG SC SCH ×2 (08:21→20:49)
--- NOTE | 2016-07-15 11:11 | PDOCDIS ---
Discharge Instructions DIAGNOSIS Discharge Diagnosis: Community-acquired pneumonia. CONDITION Patient Condition: Stable HOME CARE INSTRUCTIONS: Special Diet: 1800 gonsalo FOLLOW UP/APPOINTMENTS Appointments Enrike Pollock MD Specialty: Internal Medicine Office Address: [address] [place], [place] [id number] Office OTHER ORDERS: Other Orders: 1. Take a carbohydrate controlled diet. 2. Take medications as per prescription. 3. Follow-up with your primary care physician 2 weeks. If you do not have a primary care physician, please call Dr. Enrike Pollock's office. 4. Resume activities as tolerated. CHIRAG MALIK NP Jul 15, 2016 11:11
[2016-07-15] MEDS ORDERED: LEVO750T25 PO (11:12)
[2016-07-15] MEDS ORDERED: PRED50TA PO (11:14)
[2016-07-15] MEDS ORDERED: ALBU8.5H3 INH (11:14)
[2016-07-15] MEDS ORDERED: METF500T4 PO (11:19)
[2016-07-15] MEDS ORDERED: SITA100T8 PO (11:19)
--- NOTE | 2016-07-15 11:50 | PN ---
Date/Time of Note Date/Time of Note DATE: 07/15/16 TIME: 11:49 Assessment/Plan VTE Prophylaxis VTE Prophylaxis Intervention: heparin Lines/Catheters IV [facility] Urinary Cath still in place: No Assessment/Plan Chief Complaint/Hosp Course 1. Community-acquired pneumonia. Continue antibiotics as per Infectious Disease. 2. Acute hypoxic respiratory failure, most probably secondary to underlying community-acquired pneumonia. Improving. Continue inhaled bronchodilators. Continue tapering dose of steroids. 3. Microcytic hypochromic anemia with underlying iron deficiency. Continue iron supplements. 4. Acute on chronic diastolic heart failure. Continue diuretics. 5. Type 2 diabetes mellitus. Newly diagnosed versus undiagnosed. Hemoglobin A1c 7.3. Continue sliding scale insulin along with Lantus insulin. Blood sugar was fairly well controlled. 6. Essential hypertension. Continue antihypertensives. 7. Dyslipidemia. We will continue the patient on statin. 8. Fluid, electrolytes and nutrition. Carbohydrate controlled diet. 9. Deep venous thrombosis prophylaxis. Subcutaneous heparin. 10. Gastrointestinal prophylaxis. Proton pump inhibitors. PLAN: Continue diuresis. Continue antibiotics. Taper down steroids. The case was discussed with Dr. Dela Cruz. Problems: Subjective 24 Hr Interval Summary Free Text/Dictation Is complaining of some dyspnea. Exam/Review of Systems Vital Signs Vitals Vital Signs Date Time Temp Pulse Resp B/P Pulse Ox O2 Delivery O2 Flow Rate FiO2 07/15/16 11:39 97.5 113 20 154/67 93 07/15/16 08:00 Nasal Cannula 07/15/16 07:45 1.0 07/14/16 20:05 24 Intake and Output 07/14/16 07/14/16 07/15/16 15:00 23:00 07:00 Intake Total 800 ml Balance 800 ml Exam GENERAL: This is an obese [place] female lying in bed in no apparent distress. HEENT: Head normocephalic and atraumatic. Eyes: Anicteric sclerae. Conjunctivae clear. ENT: Nasal septum is midline. Oral mucosa is dry. NECK: Supple. No JVD noticed. RESPIRATORY: Bilaterally diminished breath sounds. A few fine rales heard, especially at the bases. CARDIAC: Regular rate and rhythm. S1 and S2 heard. ABDOMEN: Soft, nontender and nondistended. Bowel sounds positive in all 4 quadrants. GENITOURINARY: Deferred. EXTREMITIES: No cyanosis, no clubbing, no edema. Peripheral pulses are palpable. NEUROLOGIC: The patient is awake, alert and oriented. Cranial nerves are grossly intact. Results Result Diagram: 07/15/16 0615 07/15/16 0615 Results 24 hrs Laboratory Tests Test 07/14/16 17:34 07/14/16 20:42 07/15/16 06:15 07/15/16 08:12 Bedside Glucose 281 H 177 247 H Anion Gap 18 H Basophils # 0.0 Basophils % 0.2 Blood Urea Nitrogen 24 H Calcium Level 8.9 Carbon Dioxide Level 25 Chloride Level 103 Creatinine 0.77 Eosinophils # 0.0 Eosinophils % 0.0 Glucose Level 268 #H Hematocrit 32.6 L Hemoglobin 10.1 L Lymphocytes # 1.2 Lymphocytes % 19.2 Magnesium Level 1.9 Mean Corpuscular Hemoglobin 24.5 L Mean Corpuscular Hemoglobin Concent 31.0 L Mean Corpuscular Volume 78.9 L Mean Platelet Volume 10.0 Monocytes # 0.2 L Monocytes % 2.7 Neutrophils # 4.5 Neutrophils % 71.3 Nucleated Red Blood Cells # 0.0 Nucleated Red Blood Cells % 0.0 Phosphorus Level 3.5 Platelet Count 366 # Potassium Level 4.0 Red Blood Count 4.13 L Red Cell Distribution Width 14.7 H Sodium Level 142 White Blood Count 6.2 # Medications Medications Current Medications Amlodipine Besylate (Norvasc) 10 mg DAILY PO Last administered on 07/15/16 08: 18; Admin Dose 10 MG; Start 07/11/16 at 09:00 Duloxetine HCl (Cymbalta) 60 mg DAILY PO Last administered on 07/15/16 08:17; Admin Dose 60 MG; Start 07/11/16 at 09:00 Ferrous Sulfate (Ferrous Sulfate (Ec)) 325 mg BID PO Last administered on 08:17; Admin Dose 325 MG; Start 07/10/16 at 21:00 Ibuprofen (Motrin) 400 mg Q6H PRN PO PAIN; Start 07/10/16 at 14:00 Trazodone HCl (Desyrel) 50 mg QHS PO Last administered on 07/14/16 20:45; Admin Dose 50 MG; Start 07/10/16 at 21:00 Valsartan (Diovan) 160 mg DAILY PO Last administered on 07/15/16 08:18; Admin Dose 160 MG; Start 07/11/16 at 09:00 Pantoprazole 40 mg 40 mg DAILY@06 PO Last administered on 07/15/16 05:46; Admin Dose 40 MG; Start 07/11/16 at 06:00 Sodium Chloride (NS) 1,000 ml @ 100 mls/hr Q10H IV Last administered on 13:34; Admin Dose 100 MLS/HR; Start 07/10/16 at 17:00; Status Future Hold Ondansetron HCl (Zofran Inj) 4 mg Q6H PRN IV NAUSEA AND/OR VOMITING; Start 07/10 at 14:00 Acetaminophen (Tylenol Tab) 650 mg Q6H PRN PO PAIN LEVEL 1-3 OR FEVER; Start at 14:00 Acetaminophen (Tylenol Supp) 650 mg Q6H PRN [place] PAIN LEVEL 1-3 OR FEVER; Start 07/10/16 at 14:00 Acetaminophen/ Hydrocodone Bitart ([place] (5/325)) 1 tab Q6H PRN PO MODERATE PAIN LEVEL 4-6 Last administered on 07/14/16 06:37; Admin Dose 1 TAB; Start 07/10 at 14:00 Acetaminophen/ Hydrocodone Bitart ([place] (5/325)) 2 tab Q6H PRN PO SEVERE PAIN LEVEL 7-10 Last administered on 07/11/16 15:29; Admin Dose 2 TAB; Start 07/10/16 at 14:00 Morphine Sulfate (morphine) 2 mg Q4H PRN IV SEVERE PAIN LEVEL 7-10 Last administered on 07/12/16 00:35; Admin Dose 2 MG; Start 07/10/16 at 14:00 Docusate Sodium (Colace) 100 mg Q12H PRN PO CONSTIPATION; Start 07/10/16 at 14: 00 Magnesium Hydroxide (Milk Of Mag) 30 ml DAILY PRN PO CONSTIPATION; Start at 14:00 Bisacodyl (Dulcolax Supp) 10 mg DAILY PRN [place] CONSTIPATION; Start 07/10/16 at 14: 00 Furosemide (Lasix) 40 mg DAILY@06 IV Last administered on 07/15/16 05:46; Admin Dose 40 MG; Start 07/11/16 at 06:00 Diagnostic Test (Pha) (Accucheck) 02 XX Last administered on 07/12/16 02: 39; Admin Dose 1 EA; Start 07/12/16 at 02:00 Miscellaneous Information 1 ea NOTE XX ; Start 07/11/16 at 14:30 Glucose (Glutose) 15 gm Q15M PRN PO DECREASED GLUCOSE; Start 07/11/16 at 14:30 Glucose (Glutose) 22.5 gm Q15M PRN PO DECREASED GLUCOSE; Start 07/11/16 at 14:30 Dextrose (D50w Syringe) 25 ml Q15M PRN IV DECREASED GLUCOSE; Start 07/11/16 at 14:30 Dextrose (D50w Syringe) 50 ml Q15M PRN IV DECREASED GLUCOSE; Start 07/11/16 at 14:30 Glucagon (Glucagen) 1 mg Q15M PRN IM DECREASED GLUCOSE; Start 07/11/16 at 14:30 Glucose (Glutose) 15 gm Q15M PRN BUCCAL DECREASED GLUCOSE; Start 07/11/16 at 14: 30 Heparin Sodium (Porcine) (Heparin (5000 Units/0.5 ml)) 5,000 unit BID SC Last administered on 07/15/16 08:21; Admin Dose 5,000 UNIT; Start 07/11/16 at 21:00 Insulin Glargine (Lantus) 18 unit DAILY@08 SC Last administered on 07/15/16 08: 20; Admin Dose 18 UNIT; Start 07/13/16 at 08:00 Methylprednisolone Sodium Succinate (Solu-Medrol) 40 mg Q8 IV Last administered on 07/15/16 05:46; Admin Dose 40 MG; Start 07/12/16 at 22:00 Clonidine (Catapres) 0.1 mg Q6H PRN PO ELEVATED BLOOD PRESSURE Last administered on 07/13/16 04:51; Admin Dose 0.1 MG; Start 07/13/16 at 05:00 Hydralazine HCl (Apresoline) 10 mg Q4H PRN IV ELEVATED BLOOD PRESSURE>150 Last administered on 07/15/16 05:47; Admin Dose 10 MG; Start 07/13/16 at 05:00 Levofloxacin (Levaquin) 500 mg DAILY@06 PO Last administered on 07/15/16 05:46 ; Admin Dose 500 MG; Start 07/15/16 at 06:00 Atorvastatin Calcium (Lipitor) 20 mg HS PO Last administered on 07/14/16t 20:45 ; Admin Dose 20 MG; Start 07/14/16 at 21:00 CHIRAG MALIK NP Jul 15, 2016 11:50
--- NOTE | 2016-07-15 11:54 | CONS ---
Date/Time of Note Date/Time of Note DATE: 07/15/16 TIME: 11:53 Assessment/Plan Assessment/Plan Chief Complaint/Hosp Course SUBJECTIVE: No events overnight, looks comfortable, no fevers, no SOB. MICROBIOLOGY: Blood cultures negative. Influenza swab negative. ALLERGIES: PENICILLIN. ANTIMICROBIALS: Levaquin. PHYSICAL EXAMINATION: GENERAL: This is a morbidly obese elderly [place] woman who is alert, in no distress. HEENT: Head atraumatic, normocephalic. Sclerae anicteric. Buccal mucosa dry. NECK: Supple, trachea midline. CHEST: Rise symmetrical. Breath sounds diminished at the bases. HEART: S1, S2. ABDOMEN: Soft, bowel tones present. EXTREMITIES: Without cyanosis. ASSESSMENT: 1. Systemic inflammatory response syndrome 2. Community-acquired pneumonia. 3. Morbid obesity. 4. Hypertension. PLAN: Continues to improve. Anticipate dc on Levaquin for 5 more days DW staff Problems: Consultation Date/Type/Reason Admit Date/Time Jul 10, 2016 at 12:34 Type of Consultation: ID Exam/Review of Systems Vital Signs Vitals Vital Signs Date Time Temp Pulse Resp B/P Pulse Ox O2 Delivery O2 Flow Rate FiO2 07/15/16 11:39 97.5 113 20 154/67 93 07/15/16 08:00 Nasal Cannula 07/15/16 07:45 1.0 07/14/16 20:05 24 Intake and Output 07/14/16 07/14/16 07/15/16 15:00 23:00 07:00 Intake Total 800 ml Balance 800 ml Results Result Diagram: 07/15/16 0615 07/15/16 0615 Results 24 hrs Laboratory Tests Test 07/14/16 17:34 07/14/16 20:42 07/15/16 06:15 07/15/16 08:12 Bedside Glucose 281 H 177 247 H Anion Gap 18 H Basophils # 0.0 Basophils % 0.2 Blood Urea Nitrogen 24 H Calcium Level 8.9 Carbon Dioxide Level 25 Chloride Level 103 Creatinine 0.77 Eosinophils # 0.0 Eosinophils % 0.0 Glucose Level 268 #H Hematocrit 32.6 L Hemoglobin 10.1 L Lymphocytes # 1.2 Lymphocytes % 19.2 Magnesium Level 1.9 Mean Corpuscular Hemoglobin 24.5 L Mean Corpuscular Hemoglobin Concent 31.0 L Mean Corpuscular Volume 78.9 L Mean Platelet Volume 10.0 Monocytes # 0.2 L Monocytes % 2.7 Neutrophils # 4.5 Neutrophils % 71.3 Nucleated Red Blood Cells # 0.0 Nucleated Red Blood Cells % 0.0 Phosphorus Level 3.5 Platelet Count 366 # Potassium Level 4.0 Red Blood Count 4.13 L Red Cell Distribution Width 14.7 H Sodium Level 142 White Blood Count 6.2 # Medications Medications Current Medications Amlodipine Besylate (Norvasc) 10 mg DAILY PO Last administered on 07/15/16 08: 18; Admin Dose 10 MG; Start 07/11/16 at 09:00 Duloxetine HCl (Cymbalta) 60 mg DAILY PO Last administered on 07/15/16 08:17; Admin Dose 60 MG; Start 07/11/16 at 09:00 Ferrous Sulfate (Ferrous Sulfate (Ec)) 325 mg BID PO Last administered on 08:17; Admin Dose 325 MG; Start 07/10/16 at 21:00 Ibuprofen (Motrin) 400 mg Q6H PRN PO PAIN; Start 07/10/16 at 14:00 Trazodone HCl (Desyrel) 50 mg QHS PO Last administered on 07/14/16 20:45; Admin Dose 50 MG; Start 07/10/16 at 21:00 Valsartan (Diovan) 160 mg DAILY PO Last administered on 07/15/16 08:18; Admin Dose 160 MG; Start 07/11/16 at 09:00 Pantoprazole 40 mg 40 mg DAILY@06 PO Last administered on 07/15/16 05:46; Admin Dose 40 MG; Start 07/11/16 at 06:00 Sodium Chloride (NS) 1,000 ml @ 100 mls/hr Q10H IV Last administered on 13:34; Admin Dose 100 MLS/HR; Start 07/10/16 at 17:00; Status Future Hold Ondansetron HCl (Zofran Inj) 4 mg Q6H PRN IV NAUSEA AND/OR VOMITING; Start 07/10 at 14:00 Acetaminophen (Tylenol Tab) 650 mg Q6H PRN PO PAIN LEVEL 1-3 OR FEVER; Start at 14:00 Acetaminophen (Tylenol Supp) 650 mg Q6H PRN [place] PAIN LEVEL 1-3 OR FEVER; Start 07/10/16 at 14:00 Acetaminophen/ Hydrocodone Bitart ([place] (5/325)) 1 tab Q6H PRN PO MODERATE PAIN LEVEL 4-6 Last administered on 07/14/16 06:37; Admin Dose 1 TAB; Start 07/10 at 14:00 Acetaminophen/ Hydrocodone Bitart ([place] (5/325)) 2 tab Q6H PRN PO SEVERE PAIN LEVEL 7-10 Last administered on 07/11/16 15:29; Admin Dose 2 TAB; Start 07/10/16 at 14:00 Morphine Sulfate (morphine) 2 mg Q4H PRN IV SEVERE PAIN LEVEL 7-10 Last administered on 07/12/16 00:35; Admin Dose 2 MG; Start 07/10/16 at 14:00 Docusate Sodium (Colace) 100 mg Q12H PRN PO CONSTIPATION; Start 07/10/16 at 14: 00 Magnesium Hydroxide (Milk Of Mag) 30 ml DAILY PRN PO CONSTIPATION; Start at 14:00 Bisacodyl (Dulcolax Supp) 10 mg DAILY PRN [place] CONSTIPATION; Start 07/10/16 at 14: 00 Furosemide (Lasix) 40 mg DAILY@06 IV Last administered on 07/15/16 05:46; Admin Dose 40 MG; Start 07/11/16 at 06:00 Diagnostic Test (Pha) (Accucheck) 1 ea 02 XX Last administered on 07/12/16 02: 39; Admin Dose 1 EA; Start 07/12/16 at 02:00 Miscellaneous Information 1 ea NOTE XX ; Start 07/11/16 at 14:30 Glucose (Glutose) 15 gm Q15M PRN PO DECREASED GLUCOSE; Start 07/11/16 at 14:30 Glucose (Glutose) 22.5 gm Q15M PRN PO DECREASED GLUCOSE; Start 07/11/16 at 14:30 Dextrose (D50w Syringe) 25 ml Q15M PRN IV DECREASED GLUCOSE; Start 07/11/16 at 14:30 Dextrose (D50w Syringe) 50 ml Q15M PRN IV DECREASED GLUCOSE; Start 07/11/16 at 14:30 Glucagon (Glucagen) 1 mg Q15M PRN IM DECREASED GLUCOSE; Start 07/11/16 at 14:30 Glucose (Glutose) 15 gm Q15M PRN BUCCAL DECREASED GLUCOSE; Start 07/11/16 at 14: 30 Heparin Sodium (Porcine) (Heparin (5000 Units/0.5 ml)) 5,000 unit BID SC Last administered on 07/15/16 08:21; Admin Dose 5,000 UNIT; Start 07/11/16 at 21:00 Insulin Glargine (Lantus) 18 unit DAILY@08 SC Last administered on 07/15/16 08: 20; Admin Dose 18 UNIT; Start 07/13/16 at 08:00 Methylprednisolone Sodium Succinate (Solu-Medrol) 40 mg Q8 IV Last administered on 07/15/16 05:46; Admin Dose 40 MG; Start 07/12/16 at 22:00 Clonidine (Catapres) 0.1 mg Q6H PRN PO ELEVATED BLOOD PRESSURE Last administered on 07/13/16 04:51; Admin Dose 0.1 MG; Start 07/13/16 at 05:00 Hydralazine HCl (Apresoline) 10 mg Q4H PRN IV ELEVATED BLOOD PRESSURE>150 Last administered on 07/15/16 05:47; Admin Dose 10 MG; Start 07/13/16 at 05:00 Levofloxacin (Levaquin) 500 mg DAILY@06 PO Last administered on 07/15/16 05:46 ; Admin Dose 500 MG; Start 07/15/16 at 06:00 Atorvastatin Calcium (Lipitor) 20 mg HS PO Last administered on 07/14/16 20:45 ; Admin Dose 20 MG; Start 07/14/16 at 21:00 JASSON TAYLOR NP Jul 15, 2016 11:53
[2016-07-15] MEDS ORDERED: FUROSEMIDE 20 MG INJ IV ONE (12:00)
[2016-07-15] MEDS ORDERED: FUROSEMIDE 40 MG INJ IV ONE (16:00)
--- NOTE | 2016-07-15 16:29 | PN ---
DATE: REASON FOR FOLLOWUP: Shortness of breath. SUBJECTIVE: Patient somewhat better today. Less dyspnea. Reports less shortness of breath on exer tion. PHYSICAL EXAMINATION: VITAL SIGNS: Temperature 98, pulse is 100, blood pressure 154/67, O2 saturation 96% on room air. NECK: Supple. No JVD or lymphadenopathy. CARDIAC: S1, S2, no added sounds or murmurs. CHEST: Diminished air entry bilaterally. ABDOMEN: Soft, nontender. No guarding or rebound. EXTREMITIES: No cyanosis, clubbing, edema. NEUROLOGIC: Grossly intact. No focal deficits. IMPRESSION AND PLAN: 1. Acute bronchitis with hypoxemic respiratory failure. 2. Possible component of diastolic dysfunction. 3. Probable underlying obstructive sleep apnea. 4. Patient to have decreased steroids. 5. Additional dose of Lasix. 6. Agree with discharge planning. Dictated By: SCAR SANDERS/MAKENZIE Conf#: [id number] DID#: [id number]
[2016-07-15] MEDS: metFORMIN 500 MG TAB PO SCH (17:44)
[2016-07-15] MEDS: ATORVASTATIN 20 MG TAB PO SCH (20:48)
[2016-07-15] MEDS: traZODone 50 MG TAB PO SCH (20:48)
[2016-07-16] VITALS (9 sets, daily range): BP systolic 125–168; BP diastolic 58–67; PULSE 81–112; RESP 17–18
[2016-07-16 00:16] LABS: POTASSIUM 3.2 mmol/L (3.5-5.1)
[2016-07-16 00:19] LABS: CREATININE 0.99 mg/dl (0.44-1.00)
[2016-07-16 00:20] LABS: CALCIUM 8.6 mg/dl (8.4-10.2); MAGNESIUM 1.9 mg/dl (1.7-2.5)
[2016-07-16] MEDS: ACCUCHECK XX SCH (02:00)
[2016-07-16] MEDS ORDERED: POTASSIUM CHLORIDE 250 ML IVPB ONE (05:00)
[2016-07-16] MEDS: PANTOPRAZOLE (EC) 40 MG TAB PO SCH (05:36)
[2016-07-16] MEDS: hydrALAzine 20 MG INJ IV PRN (05:36)
[2016-07-16] MEDS: FUROSEMIDE 40 MG INJ IV SCH (05:37)
[2016-07-16] MEDS: LEVOFLOXACIN 500 MG TAB PO SCH (05:37)
[2016-07-16 05:58] LABS: ADD SCAN DIFF NO
[2016-07-16 06:07] LABS: ABNORMAL IP MESSAGE 1; BASOPHILS % 0.4 % (0.0-2.0); EOSINOPHILS # 0.1 10^3/ul (0.0-0.5); EOSINOPHILS % 1.5 % (0.0-7.0); HEMATOCRIT 30.2 % (37.0-47.0); HEMOGLOBIN 9.4 g/dl (12.0-16.0); LYMPHOCYTES # 2.3 10^3/ul (0.8-2.9); LYMPHOCYTES % 28.4 % (15.0-51.0); MEAN CORPUSCULAR HEMOGLOBIN 24.7 pg (29.0-33.0); MEAN CORPUSCULAR HGB CONC 31.1 g/dl (32.0-37.0); MEAN CORPUSCULAR VOLUME 79.5 fl (82.0-101.0); MEAN PLATELET VOLUME 9.9 fl (7.4-10.4); MONOCYTE # 0.5 10^3/ul (0.3-0.9); MONOCYTES % 6.1 % (0.0-11.0); NEUTROPHIL # 4.7 10^3/ul (1.6-7.5); NEUTROPHILS % 58.1 % (39.0-77.0); PLATELET COUNT 334 10^3/UL (140-415)
[2016-07-16 06:23] LABS: MAGNESIUM 1.9 mg/dl (1.7-2.5); PHOSPHORUS 4.2 mg/dl (2.5-4.9)
[2016-07-16] MEDS: ALBUTEROL/IPRATROPIUM (NEB) 3 ML AMP HHN SCH ×2 (07:48→13:25)
[2016-07-16] MEDS ORDERED: INSULIN GLARGINE [LANtus] 3 ML PEN SC SCH (08:00)
[2016-07-16] MEDS: FERROUS SULFATE (EC) 325 MG TAB PO SCH (08:23)
[2016-07-16] MEDS: metFORMIN 500 MG TAB PO SCH (08:24)
[2016-07-16] MEDS: DULOXETINE 30 MG CAP DR PO SCH (08:24)
[2016-07-16] MEDS: VALSARTAN 160 MG TAB PO SCH (08:24)
[2016-07-16] MEDS: AMLODIPINE 10 MG TAB PO SCH (08:24)
[2016-07-16] MEDS: INSULIN ASPART [NOVOLOG] 3 ML PEN SC SCH ×4 (08:27→12:12)
[2016-07-16] MEDS: HEPARIN 5,000 UNIT/0.5 ML SYG SC SCH (08:29)
[2016-07-16] MEDS ORDERED: METHYLPREDNISOLONE 40 MG INJ IV SCH (09:00)
--- NOTE | 2016-07-16 16:42 | PN ---
DATE: 07/16/2016 VITAL SIGNS: Temperature 97, pulse is 100, blood pressure 125/58, O2 saturation 98% on room air. NECK: Supple. No JVD or lymphadenopathy. CARDIAC: S1, S2, no added sounds or murmurs. CHEST: Diminished air entry bilaterally. ABDOMEN: Soft, nontender. No guarding or rebound. EXTREMITIES: No cyanosis, clubbing, or edema. NEUROLOGIC: Grossly intact. LABORATORY DATA: White count 8.0, hemoglobin 9.4, platelets of 334. Chemistry: BUN 30, creatinine 0.99. IMPRESSION AND PLAN: 1. Improved hypoxemic respiratory failure. 2. Resolved acute bronchitis. 3. Diastolic dysfunction. 4. Probable underlying sleep apnea. PLAN 1. Discharge planning. 2. Outpatient pulmonary function tests. 3. Sleep study. 4. DVT and GI prophylaxis. Dictated By: SCAR SANDERS/MAKENZIE Conf#: [id number] DID#: [id number]
--- NOTE | 2016-07-16 17:48 | DS ---
DATE OF ADMISSION: 07/10/2016 DATE OF DISCHARGE: 07/16/2016 FINAL DIAGNOSES: 1. Community-acquired pneumonia. 2. Acute hypoxic respiratory failure secondary to underlying community- acquired pneumonia. 3. Microcytic hypochromic anemia. 4. Iron deficiency. 5. Acute on chronic diastolic heart failure. 6. Type 2 diabetes mellitus. Newly diagnosed versus undiagnosed. 7. Essential hypertension. 8. Dyslipidemia. 9. Morbid obesity. 10. Coronary artery disease. CONSULTATIONS: 1. Dr. Manpreet Bejarano, infectious diseases. 2. Dr. Mikel Gan, pulmonary. 3. Mayelin Rivera NP, for infectious disease. 4. Dr. Vel Saleh, pulmonary. HOSPITAL COURSE: This is a 75-year-old female with past medical history of CAD status post stent placement, who came to the emergency room with a chief complaint of increased dyspnea and productive cough. The patient also verbalized subjective fevers. The patient's chest x-ray showed right lower lobe pneumonia. The patient had a temperature of 102.9 in the emergency room. Provided the patient's history of present illness, her comorbidities, and the diagnostic findings, a clinical decision was made to admit the patient to inpatient setting to have her further evaluated. The patient was admitted to inpatient telemetry floor. The patient was started on empiric antibiotics. Pancultures were ordered. An infectious disease consult was called. A pulmonary consult was also called since the patient had significant bronchospasm and dyspnea. The patient's pancultures remained negative. The patient was maintained on antibiotics as per infectious diseases. The patient's symptomatology improved with antibiotic regimen. The patient was also noticed to have acute hypoxic respiratory failure, most probably secondary to underlying community-acquired pneumonia. The patient was maintained on inhaled bronchodilators. The patient was also started on tapering dose of steroids since the patient had significant bronchospasms. The patient also has underlying acute on chronic diastolic heart failure. The patient was maintained on diuretics for the same. The patient was noticed to have elevated blood glucose. The patient's hemoglobin A1c was found to be 7.3. The patient was newly diagnosed with diabetes versus this was undiagnosed before. The patient was started on sliding scale insulin along with Lantus insulin and basal insulin, with improvement in the patient's blood sugars. The patient was seen and evaluated by in service educator. The patient was started on oral agents upon discharge. The patient has underlying essential hypertension. The patient was maintained on antihypertensives for the same. She has underlying dyslipidemia. She was maintained on statins for the same. The patient has history of iron deficiency anemia. The patient was maintained on iron supplements for the same. The patient had a stable but prolonged hospital course because of the slow improvement in the patient's condition. Today (07/16/2016), the patient is stable to be discharged home. The patient denied any complaints at the time of discharge. The patient denied any chest pain. The patient denied any dyspnea. DISCHARGE DISPOSITION AND PLAN: The patient will be discharged home today. The patient was instructed to take a carbohydrate controlled diet. She was instructed to take medications as per prescription. She was instructed to follow up with her primary care physician in 2 weeks, and if she does not have primary care physician, to please call Dr. Enrike Pollock's office. The patient was instructed to resume activities as tolerated. The patient verbalized understanding of her discharge instructions. CONDITION AT DISCHARGE: Stable. DISCHARGE MEDICATIONS: 1. ProAir HFA 8.5 grams inhaled 2 puffs q.4 hours p.r.n. dyspnea. 2. Levaquin 750 mg p.o. daily for 5 days. 3. Metformin 500 mg p.o. with breakfast and dinner. 4. Januvia 100 mg p.o. daily. 5. Prednisone 40 mg p.o. daily x2 days, then prednisone 20 mg p.o. daily x2 days, then prednisone 10 mg p.o. daily x2 days, then prednisone 5 mg p.o. daily x2 days. 6. Amlodipine 10 mg p.o. daily. 7. Duloxetine 60 mg p.o. daily. 8. Ferrous sulfate 325 mg p.o. b.i.d. 9. Lasix 20 mg p.o. daily. 10. Omeprazole 20 mg p.o. daily. 11. Trazodone 50 mg p.o. at bedtime. 12. Valsartan 160 mg p.o. daily. PERTINENT LABORATORY AND DIAGNOSTIC DATA: 1. Latest CBC: WBC 8.0, hemoglobin 9.4, hematocrit 30.2, platelet count 334. 2. Latest BMP: Sodium 139, potassium 3.0, chloride 99, carbon dioxide 24, anion gap 19, BUN 30, creatinine 0.99, glucose 153, calcium 8.6, phosphorus 4.2 , magnesium 1.9. 3. Hemoglobin A1c 7.3. 4. Fasting lipid panel: Triglycerides 113, total cholesterol 215, LDL 148, HDL 44. 5. Latest chest x-ray on 07/13/2016: Pneumonia at the right lung base medially , unchanged. Cardiomegaly and atherosclerosis. 6. Blood culture x4 negative. 7. Influenza A and B negative. 8. 2D echocardiogram: Ejection fraction of 65%. Stage I diastolic dysfunction. No significant valvular stenosis or regurgitation is seen. At this time, I would like to thank all the consultants for seeing the patient and providing clinical recommendations. The case and management of this patient was fully discussed with Dr. Martinez. Approximately 40 minutes was spent on coordinating the discharge on this patient. CHIRAG MARTINEZ MD, AM/NTS Conf#: [id number] DID#: [id number] CC: SERGIO BOYD MD;*EndCC* MTDD
== END 2016-07-16 17:50 | disposition home or self-care (01) | DRG 871 ==
LOC: E/R 10:22 → MS4 12:34
PROVIDERS: ADMIT Internal Medicine; ATTEND Internal Medicine
DX: A41.9 Sepsis, unspecified organism (principal); J18.9 Pneumonia, unspecified organism; J96.01 Acute respiratory failure with hypoxia; I50.33 Acute on chronic diastolic (congestive) heart failure; E11.9 Type 2 diabetes mellitus without complications; I11.0 Hypertensive heart disease with heart failure; D50.9 Iron deficiency anemia, unspecified; I25.10 Atherosclerotic heart disease of native coronary artery without angina pectoris; E66.01 Morbid (severe) obesity due to excess calories; Z68.35 Body mass index [BMI] 35.0-35.9, adult; E78.5 Hyperlipidemia, unspecified; E87.6 Hypokalemia; J20.9 Acute bronchitis, unspecified
CPT/HCPCS: 36415; 71010; 80048; 80053; 80061; 82150; 82550; 82553; 82962; 83036; 83605; 83690; 83735; 83880; 84100; 84436; 84443; 84479; 84484; 85025; 85610; 85730; 86850; 86900; 86901; 87040; 87081; 87400; 90686; 93005; 93306; 94640; 94644; 94664; 96374; 96375; 97110; 97116; 97163; 97530; J1940; J0360; J1815; J1956; J2270; J2920; J2930; J3370; J3480; J7030